=== PATIENT | female | born 1935 | race Two or more races ===

== ENCOUNTER 2017-11-25 12:33 | Emergency (ER) | payer OTHER ==
[~2017-11-25] VITALS: Ht 149.9 cm; Wt 72.6 kg
[~2017-11-25 12:33] MED LIST: HYZAAR 100-121 UDTAB; LANTUS SOLOSTAR3 ML; METFORMIN HYDRO25 GM; NOVOLOG MIX 70/33 M1; SYNTHROID50 MCG; VASOTEC2.5 MG
== END 2017-11-25 16:25 | disposition home or self-care (01) ==
LOC: ER 12:33 → CPU-OBS 12:47 → ER 16:25
DX: R00.1 Bradycardia, unspecified (principal); R07.89 Other chest pain

== ENCOUNTER 2020-03-21 17:55 | Emergency (ER) | payer OTHER ==
[~2020-03-21] VITALS: Ht 160 cm; Wt 68.0 kg
[2020-03-21] MEDS ORDERED: CARDURA XL4 MG PO (18:13)
== END 2020-03-22 13:08 | disposition home or self-care (01) ==
LOC: ER 17:55 → CPU-OBS 18:06 → ER 03-22 13:08
DX: I49.5 Sick sinus syndrome (principal); R42 Dizziness and giddiness; I10 Essential (primary) hypertension; E11.9 Type 2 diabetes mellitus without complications

== ENCOUNTER 2022-01-20 06:47 | Outpatient (CLI) | payer OTHER ==
[~2022-01-20 06:47] MED LIST changes: +CARDURA XL4 MG PO
== END 2022-01-20 14:47 | disposition home or self-care (01) ==
LOC: LAB 06:47
PROVIDERS: ATTEND Internal Medicine Cardiovascular Disease
DX: J81.0 Acute pulmonary edema (principal); E78.00 Pure hypercholesterolemia, unspecified; N18.30 Chronic kidney disease, stage 3 unspecified; R07.9 Chest pain, unspecified; I24.9 Acute ischemic heart disease, unspecified; E11.9 Type 2 diabetes mellitus without complications; E03.8 Other specified hypothyroidism; I12.9 Hypertensive chronic kidney disease with stage 1 through stage 4 chronic kidney disease, or unspecified chronic kidney disease

== ENCOUNTER 2023-07-19 10:30 | Outpatient (CLI) | payer OTHER | END 2023-07-19 10:39 | disposition home or self-care (01) | LOC: NUCLEAR 10:30 | PROVIDERS: ATTEND Internal Medicine Cardiovascular Disease | DX: I11.9 Hypertensive heart disease without heart failure (principal) ==

== ENCOUNTER 2024-01-08 15:05 | Inpatient (IN) | payer OTHER ==
[~2024-01-08] VITALS: Ht 152.4 cm; Wt 63.5 kg
[2024-01-08 16:32] LABS: HEMATOCRIT 26.5 % (36.0-45.00); MEAN CELL VOLUME 85.6 fL (80.00-100.00); MEAN CORPUSCULAR HGB CONC 34.4 g/dl (32.0-36.0); PLATELET COUNT 202 K/uL (150-450); RED CELL DISTRIBUTION WIDTH 13.8 % (11.5-14.5)
[2024-01-08 16:33] LABS: HEMOGLOBIN 9.1 g/dL (12.0-15.00); MEAN CORPUSCULAR HEMOGLOBIN 29.3 pg (27.00-32.0)
[2024-01-08 16:59] LABS: INR 1.04; PARTIAL THROMBOPLASTIN TIME 29.5 SECONDS (22.0-34.0); PROTHROMBIN TIME 10.9 SECONDS (9.0-11.5)
[2024-01-08 17:05] LABS: ALBUMIN 3.6 gm/dL (3.4-5.0); BILIRUBIN TOTAL 0.26 mg/dL (0.3-1.2); CALCIUM 8.6 mg/dL (8.5-10.1); CREATININE SERUM 3.6 mg/dL (0.55-1.02); GFR 11.96; POTASSIUM 4.12 mEq/L (3.5-5.1); TOTAL PROTEIN 7.6 gm/dL (6.4-8.2)
[2024-01-08] MEDS ORDERED: NITROGLYCERIN IN 5 % DEXTROSE 50 MG/250 ML BOTTLE IV ONE (17:34)
[2024-01-08 17:38] LABS: URINE APPEARANCE Clear; URINE BILIRRUBIN Negative (NEGATIVE); URINE BLOOD Negative; URINE COLOR Yellow; URINE KETONE Negative (NEGATIVE); URINE LEUKOCYTE Small; URINE NITRATE Negative; URINE PROTEIN 30 (NEGATIVE); URINE UROBILINOGEN 0.2 E.U./dl
[2024-01-08] MEDS ORDERED: ENOXAPARIN SODIUM 30 MG/0.3 ML SYRINGE SUBCUTANEO SCH (17:38)
[2024-01-08] MEDS ORDERED: FAMOTIDINE/PF 20 MG/2 ML VIAL IV SCH (17:39)
[2024-01-08 17:41] LABS: URINE EPITHELIAL CELLS 6.7 uL (0.0-38.8); URINE WBC 171.9 uL (0.0-23.2)
[2024-01-08] MEDS ORDERED: CLOPIDOGREL BISULFATE 75 MG TABLET PO SCH (17:43)
[2024-01-08] MEDS ORDERED: SODIUM CHLORIDE 0.45 % 1,000 ML IV SCH ×2 (17:45→18:30)
[2024-01-08] MEDS ORDERED: NITROGLYCERIN IN 5 % DEXTROSE 50 MG/250 ML BOTTLE IV SCH (17:45)
[2024-01-08 17:48] LABS: URINE CAST 1.06 uL (0.0-1.40); URINE GLUCOSE >=1000 MG/DL (NEGATIVE); URINE RBC 0.1 uL (0.0-20.8)
[2024-01-08 17:56] LABS: ABG PH 7.375 (7.35-7.45); ABG PO2 115.2 mmHg (80-100); ABG pCO2 33.1 mmHg (35-45); BASE EXCESS -5.2 mmol/l; SaO2 98.3 %
[2024-01-08] MEDS ORDERED: ALBUTEROL SULFATE 3 ML/2.5 MG AMPUL.NEB IH SCH (18:03)
[2024-01-08] MEDS ORDERED: METOPROLOL SUCCINATE 25 MG TAB.SR.24H PO SCH (18:05)
[2024-01-08 18:07] LABS: allen test SATISFACTORY; o2 32 %; puncture site RADIAL RIGHT
[2024-01-08] MEDS ORDERED: MAGNESIUM SULFATE 50% 1,000 MG/2 ML VIAL ONE (18:11)
[2024-01-08] MEDS ORDERED: DEXTROSE 50 % IN WATER 0.5 G/ML DISP.SYRIN IV PRN (18:15)
[2024-01-08] MEDS ORDERED: INSULIN LISPRO 1,000 UNIT/10 ML UNITS SUBCUTANEO PRN (18:15)
[2024-01-08] MEDS ORDERED: FUROsemide 40 MG/4 ML VIAL IV STA (18:19)
[2024-01-08] MEDS ORDERED: CLOPIDOGREL BISULFATE 75 MG TABLET PO ONE (20:19)
[2024-01-08] MEDS ORDERED: FUROsemide 40 MG/4 ML VIAL ONE (20:19)
[2024-01-08] MEDS ORDERED: ENOXAPARIN SODIUM 40 MG/0.4 ML SYRINGE SUBCUTANEO ONE (20:20)
[2024-01-08] MEDS ORDERED: FAMOtidine 200mg/20ml VIAL ONE (20:22)
[2024-01-08] MEDS ORDERED: FUROsemide 20 MG/2 ML VIAL ONE (20:48)
[2024-01-08 23:00] VITALS: BP 159/57; O2SAT 100
[2024-01-08 23:22] LABS: AMYLASE 104 U/L (25-115); LIPASE 100 U/L (13-75)
[2024-01-08] MEDS ORDERED: LORazepam 0.5 MG TABLET PO SCH (23:45)
[2024-01-09] VITALS (16 sets, daily range): BP systolic 136–157; BP diastolic 45–70; O2SAT 96–100
[2024-01-09] MEDS ORDERED: ALBUTEROL SULFATE 3 ML/2.5 MG AMPUL.NEB IH ONE ×2 (00:20→08:40)
[2024-01-09] MEDS ORDERED: ALBUTEROL SULFATE 3 ML/2.5 MG AMPUL.NEB IH SCH (01:00)
[2024-01-09] MEDS ORDERED: LEVOTHYROXINE SODIUM 100 MCG TABLET PO SCH (06:00)
[2024-01-09 07:45] LABS: CHOLESTEROL 139 mg/dL (0-200); HDL 47 mg/dl (40-60); LDL 54 mg/dl (0-130); TRIGLYCERIDES 188 mg/dL (0-150); VLDL 37 (0-39)
[2024-01-09 07:52] LABS: C-REACTIVE PROTEIN < 0.29 MG/DL (0.00-0.29)
[2024-01-09] MEDS ORDERED: LOSARTAN POTASSIUM 50 MG TABLET PO SCH (09:00)
[2024-01-09] MEDS ORDERED: ENOXAPARIN SODIUM 40 MG/0.4 ML SYRINGE SUBCUTANEO ONE (09:41)
[2024-01-09] MEDS ORDERED: FAMOtidine 200mg/20ml VIAL ONE (09:41)
[2024-01-09] MEDS ORDERED: INSULIN LISPRO 1,000 UNIT/10 ML UNITS SUBCUTANEO ONE ×2 (12:45→16:44)
[2024-01-09] MEDS ORDERED: GUAIFEN/DEXTROMETHORPHAN/PE 10 ML BLIST.PACK PO ONE (16:35)
[2024-01-09] MEDS ORDERED: NITROGLYCERIN IN 5 % DEXTROSE 50 MG/250 ML BOTTLE IV ONE (16:38)
[2024-01-09] MEDS ORDERED: FUROsemide 40 MG/4 ML VIAL IV SCH (18:28)
[2024-01-09] MEDS ORDERED: EPOETIN ALFA-EPBX 10,000 UNIT/ML VIAL (Retacrit) SUBCUTANEO STA (18:33)
[2024-01-09] MEDS ORDERED: NIFEDIPINE 60 MG TAB.SA.OSM PO SCH (18:57)
[2024-01-09] MEDS ORDERED: GUAIFENESIN 200 MG/10 ML BLIST.PACK PO ONE (21:34)
[2024-01-09] MEDS ORDERED: NITROGLYCERIN IN 5 % DEXTROSE 250 ML IV SCH (22:00)
[2024-01-10] VITALS (15 sets, daily range): BP systolic 110–152; BP diastolic 45–88; O2SAT 95–100
[2024-01-10] MEDS ORDERED: ALBUTEROL SULFATE 3 ML/2.5 MG AMPUL.NEB IH ONE (00:24)
[2024-01-10] MEDS ORDERED: MORPHINE SULFATE 4 MG/ML CARTRIDGE IV ONE (02:45)
[2024-01-10 06:58] LABS: HEMATOCRIT 24.6 % (36.0-45.00); MEAN CORPUSCULAR HGB CONC 34.6 g/dl (32.0-36.0); PLATELET COUNT 189 K/uL (150-450); RED BLOOD COUNT 2.93 M/uL (4.00-6.00)
[2024-01-10 07:07] LABS: HEMOGLOBIN 8.5 g/dL (12.0-15.00)
[2024-01-10 07:33] LABS: ALBUMIN 3.1 gm/dL (3.4-5.0); BILIRUBIN TOTAL 0.42 mg/dL (0.3-1.2); CALCIUM 8.9 mg/dL (8.5-10.1); CREATININE SERUM 3.13 mg/dL (0.55-1.02); GFR 14.06; GLOBULINA 3.8 G/DL (2.4-3.5); PHOSPHOROUS 3.8 mg/dL (2.5-4.9); POTASSIUM 4.92 mEq/L (3.5-5.1); TOTAL PROTEIN 6.9 gm/dL (6.4-8.2)
[2024-01-10] MEDS ORDERED: INSULIN LISPRO 1,000 UNIT/10 ML UNITS SUBCUTANEO SCH (08:00)
[2024-01-10 08:05] LABS: URIC ACID 8.8 mg/dL (2.5-7.5)
[2024-01-10] MEDS ORDERED: INSULIN LISPRO 1,000 UNIT/10 ML UNITS SUBCUTANEO ONE ×4 (08:31→16:43)
[2024-01-10 08:39] LABS: CREATININE URINE RANDOM 33.7 MG/DL (30-125)
[2024-01-10] MEDS ORDERED: INSULIN GLARGINE,HUM.REC.ANLOG 1,000 UNITS/10 ML UNITS SUBCUTANEO ONE (08:58)
[2024-01-10] MEDS ORDERED: NIFEDIPINE 90 MG TAB.SA.OSM PO SCH (09:00)
[2024-01-10] MEDS ORDERED: INSULIN GLARGINE,HUM.REC.ANLOG 1,000 UNITS/10 ML UNITS SUBCUTANEO SCH (09:00)
[2024-01-10 09:58] LABS: URINE PROT QUANT 24HR 26.1 MG/DL
[2024-01-10 10:09] LABS: URINE PROT QUANT 24 HR 776.48 MG/24HR (42-225)
[2024-01-10 10:13] LABS: CREATINE CLEARANCE 18.9 ML/MIN (97-137); CREATININE SERUM 3.13 mg/dL (0.6-1.0)
[2024-01-10 11:15] LABS: ABG PH 7.373 (7.35-7.45); ABG pCO2 33.6 mmHg (35-45)
[2024-01-10 11:16] LABS: ABG PO2 84.2 mmHg (80-100); BASE EXCESS -5.1 mmol/l; BICARBONATE 19.2 mmol/l (23-25); SaO2 95.8 %; Tco2 20.2 mmol/l; allen test SATISFACTORY; o2 28 %; puncture site RADIAL RIGHT
[2024-01-10] MEDS ORDERED: GUAIFENESIN 200 MG/10 ML BLIST.PACK PO SCH (18:56)
[2024-01-10] MEDS ORDERED: RANOLAZINE 500 MG PO SCH (22:46)
[2024-01-11] VITALS (19 sets, daily range): BP systolic 112–160; BP diastolic 45–92; O2SAT 96–100
[2024-01-11] MEDS ORDERED: ALBUTEROL SULFATE 3 ML/2.5 MG AMPUL.NEB IH ONE (01:02)
[2024-01-11] MEDS ORDERED: DIPHENHYDRAMINE HCL 50 MG/ML VIAL 1ML IV ONE (05:15)
[2024-01-11] MEDS ORDERED: METHYLPREDNISOLONE SOD SUCC 40 MG VIAL IV ONE (05:15)
[2024-01-11] MEDS ORDERED: INSULIN GLARGINE,HUM.REC.ANLOG 1,000 UNITS/10 ML UNITS SUBCUTANEO SCH ×2 (09:00→21:00)
[2024-01-11 18:46] LABS: HEMATOCRIT 31.3 % (36.0-45.00); HEMOGLOBIN 10.6 g/dL (12.0-15.00); MEAN CELL VOLUME 84.1 fL (80.00-100.00); MEAN CORPUSCULAR HEMOGLOBIN 28.4 pg (27.00-32.0); MEAN CORPUSCULAR HGB CONC 33.8 g/dl (32.0-36.0); PLATELET COUNT 191 K/uL (150-450); RED BLOOD COUNT 3.72 M/uL (4.00-6.00); RED CELL DISTRIBUTION WIDTH 14.7 % (11.5-14.5)
[2024-01-11] MEDS ORDERED: FUERA DE FORMULARIO 1 U FF PO SCH (21:00)
[2024-01-12 04:39] VITALS: BP 154/49; O2SAT 99
[2024-01-12 06:22] LABS: HEMATOCRIT 27.9 % (36.0-45.00); HEMOGLOBIN 9.7 g/dL (12.0-15.00); MEAN CELL VOLUME 84.4 fL (80.00-100.00); MEAN CORPUSCULAR HEMOGLOBIN 29.5 pg (27.00-32.0); PLATELET COUNT 190 K/uL (150-450); RED CELL DISTRIBUTION WIDTH 14.2 % (11.5-14.5)
[2024-01-12 06:49] LABS: BILIRUBIN TOTAL 0.28 mg/dL (0.3-1.2); CALCIUM 8.6 mg/dL (8.5-10.1); CREATININE SERUM 3.48 mg/dL (0.55-1.02); GFR 12.44; GLOBULINA 3.4 G/DL (2.4-3.5); POTASSIUM 4.63 mEq/L (3.5-5.1); TOTAL PROTEIN 6.4 gm/dL (6.4-8.2)
[2024-01-12 07:04] VITALS: BP 150/51; O2SAT 100
[2024-01-12 16:16] VITALS: BP 152/63; O2SAT 96
[2024-01-12 20:35] VITALS: BP 150/54; O2SAT 96
[2024-01-12] MEDS ORDERED: INSULIN GLARGINE,HUM.REC.ANLOG 1,000 UNITS/10 ML UNITS SUBCUTANEO SCH (21:00)
[2024-01-12] MEDS ORDERED: INSULIN GLARGINE,HUM.REC.ANLOG 1,000 UNITS/10 ML UNITS SUBCUTANEO ONE (21:44)
[2024-01-12 23:08] VITALS: BP 133/43
[2024-01-13 04:00] VITALS: BP 161/49; O2SAT 96
[2024-01-13 07:40] VITALS: BP 154/60; O2SAT 95
[2024-01-13] MEDS ORDERED: INSULIN GLARGINE,HUM.REC.ANLOG 1,000 UNITS/10 ML UNITS SUBCUTANEO SCH (09:00)
[2024-01-13] MEDS ORDERED: RANOLAZINE 500 MG TAB.ER.12H PO SCH (09:00)
[2024-01-13] MEDS ORDERED: FAMOtidine 20 MG TABLET PO SCH (09:00)
[2024-01-13 15:15] VITALS: BP 151/55; O2SAT 92
[2024-01-13 15:24] LABS: HEMATOCRIT 33.2 % (36.0-45.00); HEMOGLOBIN 11.4 g/dL (12.0-15.00); MEAN CELL VOLUME 85.5 fL (80.00-100.00); MEAN CORPUSCULAR HEMOGLOBIN 29.4 pg (27.00-32.0); MEAN CORPUSCULAR HGB CONC 34.3 g/dl (32.0-36.0); PLATELET COUNT 202 K/uL (150-450); RED BLOOD COUNT 3.88 M/uL (4.00-6.00); RED CELL DISTRIBUTION WIDTH 14.5 % (11.5-14.5)
[2024-01-13 21:21] VITALS: O2SAT 92
[2024-01-13 22:37] VITALS: BP 190/71; O2SAT 96
[2024-01-14] VITALS (9 sets, daily range): BP systolic 140–172; BP diastolic 61–70; O2SAT 90–100
[2024-01-14 06:44] LABS: CALCIUM 8.5 mg/dL (8.5-10.1); CREATININE SERUM 3.72 mg/dL (0.55-1.02); GFR 11.52; POTASSIUM 5.2 mEq/L (3.5-5.1)
[2024-01-14] MEDS ORDERED: 0.9 % SODIUM CHLORIDE 1,000 ML IV SCH (09:54)
[2024-01-14] MEDS ORDERED: INSULIN GLARGINE,HUM.REC.ANLOG 1,000 UNITS/10 ML UNITS SUBCUTANEO STA (11:01)
[2024-01-14] MEDS ORDERED: hydrALAZINE HCL 25 MG TABLET PO SCH (13:00)
[2024-01-14] MEDS ORDERED: GUAIFENESIN 200 MG/10 ML BLIST.PACK PO STA (17:59)
[2024-01-14 19:29] LABS: ABG PH 7.405 (7.35-7.45); ABG PO2 56.9 mmHg (80-100); ABG pCO2 29.9 mmHg (35-45)
[2024-01-14 19:30] LABS: BICARBONATE 18.4 mmol/l (23-25); SaO2 88.6 %; Tco2 19.3 mmol/l; allen test SATISFACTORY; puncture site RADIAL RIGHT
[2024-01-14 19:33] LABS: o2 28 %
[2024-01-14] MEDS ORDERED: FUROsemide 40 MG/4 ML VIAL IV STA (19:53)
[2024-01-14 23:31] LABS: alpha 1 g 0.2 g/dL (0.0-0.4); alpha 2 0.9 g/dL (0.4-1.0); beta g 0.8 g/dL (0.7-1.3); gamma g 1.3 g/dL (0.4-1.8); globulin t 3.2 g/dL (2.2-3.9); m spike Not Observed g/dL (Not Observed); prot total 6.4 g/dL (6.0-8.5)
[2024-01-15] VITALS (10 sets, daily range): BP systolic 139–173; BP diastolic 42–74; O2SAT 91–100
[2024-01-15] MEDS ORDERED: ALBUTEROL SULFATE 3 ML/2.5 MG AMPUL.NEB IH SCH
[2024-01-15 07:44] LABS: HEMOGLOBIN 11.3 g/dL (12.0-15.00); MEAN CELL VOLUME 84.5 fL (80.00-100.00); MEAN CORPUSCULAR HEMOGLOBIN 28.9 pg (27.00-32.0); MEAN CORPUSCULAR HGB CONC 34.2 g/dl (32.0-36.0); PLATELET COUNT 223 K/uL (150-450); RED BLOOD COUNT 3.91 M/uL (4.00-6.00); RED CELL DISTRIBUTION WIDTH 14.6 % (11.5-14.5)
[2024-01-15 08:05] LABS: CALCIUM 8.8 mg/dL (8.5-10.1); CREATININE SERUM 3.75 mg/dL (0.55-1.02); GFR 11.41; POTASSIUM 5.02 mEq/L (3.5-5.1)
[2024-01-15] MEDS ORDERED: INSULIN GLARGINE,HUM.REC.ANLOG 1,000 UNITS/10 ML UNITS SUBCUTANEO SCH (09:00)
[2024-01-15] MEDS ORDERED: hydrALAZINE HCL 50 MG TABLET PO SCH (09:00)
[2024-01-15 20:21] LABS: ABG PH 7.388 (7.35-7.45); ABG pCO2 30.9 mmHg (35-45); BASE EXCESS -5.5 mmol/l; BICARBONATE 18.2 mmol/l (23-25); Tco2 19.1 mmol/l
[2024-01-15 20:22] LABS: ABG PO2 82.4 mmHg (80-100); SaO2 95.9 %; allen test SATISFACTORY; o2 100 %; puncture site RADIAL RIGHT
[2024-01-15] MEDS ORDERED: INSULIN LISPRO 1,000 UNIT/10 ML UNITS SUBCUTANEO PRN (21:30)
[2024-01-16] MEDS ORDERED: ISOSORBIDE DINITRATE 5 MG TABLET PO SCH (01:00)
[2024-01-16 04:00] VITALS: BP 147/61; O2SAT 93
[2024-01-16 07:18] VITALS: BP 172/50; O2SAT 98
[2024-01-16] MEDS ORDERED: CLOTRIMAZOLE 15 GM TUBE TOP SCH (09:00)
[2024-01-16] MEDS ORDERED: hydrALAZINE HCL 50 MG,hydrALAZINE HCL 25 MG PO SCH (09:00)
[2024-01-16] MEDS ORDERED: EPOETIN ALFA-EPBX 10,000 UNIT/ML VIAL (Retacrit) SUBCUTANEO SCH (09:00)
[2024-01-16] MEDS ORDERED: ISOSORBIDE DINITRATE 10 MG TABLET PO SCH (09:00)
[2024-01-16] MEDS ORDERED: CHLORHEXIDINE GLUCONATE 120 ML BOTTLE TOP ONE (09:11)
[2024-01-16 12:29] VITALS: BP 138/50; O2SAT 99
[2024-01-16] MEDS ORDERED: BISACODYL 5 MG TABLET.EC PO PRN (14:15)
[2024-01-16 15:15] VITALS: BP 154/69; O2SAT 99
[2024-01-16] MEDS ORDERED: CIPROFLOXACIN IN 5 % DEXTROSE 200 MG/100 ML PIGGYBAG IV NR (16:45)
[2024-01-16] MEDS ORDERED: LACTOBACILLUS ACIDOPHILUS 1 CAP CAP PO SCH (17:00)
[2024-01-16] MEDS ORDERED: POLYETHYLENE GLYCOL 3350 17 GM BLIST.PACK PO SCH (17:00)
[2024-01-16 20:00] VITALS: BP 173/44; O2SAT 99
[2024-01-16] MEDS ORDERED: FUROsemide 20 MG/2 ML VIAL ONE (20:35)
[2024-01-16] MEDS ORDERED: FUROsemide 40 MG/4 ML VIAL ONE (20:35)
[2024-01-16] MEDS ORDERED: FUROsemide 20 MG/2 ML VIAL IV STA (20:39)
[2024-01-16] MEDS ORDERED: SODIUM BICARBONATE 50MEQ/50ML VIAL IV ONE (20:57)
[2024-01-16] MEDS ORDERED: SODIUM BICARBONATE 1 MEQ/ML DISP.SYRIN 50ML IV ONE (21:00)
[2024-01-16 22:06] LABS: ABG PH 7.371 (7.35-7.45); ABG PO2 160.8 mmHg (80-100); ABG pCO2 28.2 mmHg (35-45); BASE EXCESS -7.6 mmol/l; SaO2 99.3 %; Tco2 16.9 mmol/l
[2024-01-16 22:07] LABS: allen test SATISFACTORY; o2 100 %; puncture site RADIAL RIGHT
[2024-01-16 23:20] VITALS: BP 174/63; O2SAT 98
[2024-01-17 04:10] VITALS: BP 139/52; O2SAT 98
[2024-01-17 07:24] LABS: ALBUMIN 2.7 gm/dL (3.4-5.0); BILIRUBIN TOTAL 0.57 mg/dL (0.3-1.2); CALCIUM 8.5 mg/dL (8.5-10.1); GLOBULINA 3.8 G/DL (2.4-3.5); TOTAL PROTEIN 6.5 gm/dL (6.4-8.2)
[2024-01-17 07:25] LABS: CREATININE SERUM 3.97 mg/dL (0.55-1.02); GFR 10.68; POTASSIUM 5.99 mEq/L (3.5-5.1)
[2024-01-17 07:41] VITALS: BP 159/60; O2SAT 96
[2024-01-17] MEDS ORDERED: INSULIN NPH HUMAN ISOPHANE 1,000 UNITS/10 ML UNITS SUBCUTANEO SCH (08:00)
[2024-01-17] MEDS ORDERED: SODIUM POLYSTYRENE SULFONATE 15 G/4 TSP TSP PO NR (10:30)
[2024-01-17 12:00] VITALS: BP 139/48; O2SAT 95
[2024-01-17 15:15] VITALS: BP 139/48; O2SAT 98
[2024-01-17 20:00] VITALS: BP 147/54; O2SAT 100
[2024-01-17 23:17] VITALS: BP 158/78; O2SAT 98
[2024-01-18 04:00] VITALS: BP 158/51; O2SAT 98
[2024-01-18 07:11] VITALS: BP 179/69; O2SAT 99
[2024-01-18] MEDS ORDERED: 0.9 % SODIUM CHLORIDE 1,000 ML IV SCH (08:15)
[2024-01-18 15:10] VITALS: BP 152/55; O2SAT 97
[2024-01-18 16:33] LABS: ABG PH 7.413 (7.35-7.45); ABG pCO2 33.8 mmHg (35-45); BASE EXCESS -2.7 mmol/l; BICARBONATE 21.1 mmol/l (23-25); SaO2 96.2 %; Tco2 22.1 mmol/l
[2024-01-18] MEDS ORDERED: levoFLOXacin IN DEXTROSE 5 % 500MG/100ML PIGGYBAG IV NR (16:43)
[2024-01-18 16:44] LABS: allen test SATISFACTORY; o2 100 %; puncture site RADIAL LEFT
[2024-01-18] MEDS ORDERED: FUROsemide 20 MG/2 ML VIAL IV SCH (17:00)
[2024-01-18] MEDS ORDERED: DOXAZOSIN MESYLATE 2 MG TABLET PO SCH (17:00)
[2024-01-18 17:18] LABS: CALCIUM 8.9 mg/dL (8.5-10.1); CREATININE SERUM 3.5 mg/dL (0.55-1.02); GFR 12.36; POTASSIUM 4.6 mEq/L (3.5-5.1)
[2024-01-18] MEDS ORDERED: LIDOCAINE HCL 1% 10ML VIAL PERCUT ONE (18:45)
[2024-01-18] MEDS ORDERED: HEPARIN SODIUM,PORCINE 500 UNITS/5 ML VIAL IV ONE (18:45)
[2024-01-18] MEDS ORDERED: AMIODARONE HCL 200 MG TABLET PO NR (19:30)
[2024-01-18 20:00] VITALS: BP 123/72; O2SAT 97
[2024-01-18 22:56] VITALS: BP 139/89; O2SAT 98
[2024-01-19] VITALS (9 sets, daily range): BP systolic 127–155; BP diastolic 61–82; O2SAT 93–100
[2024-01-19 07:49] LABS: ALBUMIN 2.7 gm/dL (3.4-5.0); BILIRUBIN TOTAL 0.47 mg/dL (0.3-1.2); CALCIUM 8.7 mg/dL (8.5-10.1); CREATININE SERUM 3.37 mg/dL (0.55-1.02); GFR 12.91; GLOBULINA 3.7 G/DL (2.4-3.5); POTASSIUM 5.28 mEq/L (3.5-5.1); TOTAL PROTEIN 6.4 gm/dL (6.4-8.2)
[2024-01-19] MEDS ORDERED: AMIODARONE HCL 200 MG TABLET PO SCH (09:00)
[2024-01-19] MEDS ORDERED: AMIODARONE HCL 50 MG/ML AMPUL IV NR (10:00)
[2024-01-19] MEDS ORDERED: CEFEPIME HCL 1,000 MG in DEXTROSE 5 % IN WATER 50 ML IV SCH (12:00)
[2024-01-19 12:14] LABS: URINE APPEARANCE Clear; URINE BILIRRUBIN Negative (NEGATIVE); URINE COLOR Yellow; URINE KETONE Trace (NEGATIVE); URINE LEUKOCYTE Trace; URINE NITRATE Negative; URINE PROTEIN 30 (NEGATIVE); URINE UROBILINOGEN 0.2 E.U./dl
[2024-01-19 12:18] LABS: URINE BACTERIA 391.7 uL (0.0-1933); URINE EPITHELIAL CELLS 3.2 uL (0.0-38.8); URINE RBC 51.1 uL (0.0-20.8); URINE WBC 30.7 uL (0.0-23.2)
[2024-01-19 12:32] LABS: URINE BLOOD TRACES; URINE GLUCOSE 500 MG/DL (NEGATIVE)
[2024-01-19 12:42] LABS: HEMATOCRIT 32.4 % (36.0-45.00); MEAN CELL VOLUME 85.4 fL (80.00-100.00); MEAN CORPUSCULAR HEMOGLOBIN 28.9 pg (27.00-32.0); MEAN CORPUSCULAR HGB CONC 33.8 g/dl (32.0-36.0); PLATELET COUNT 291 K/uL (150-450); RED BLOOD COUNT 3.79 M/uL (4.00-6.00); RED CELL DISTRIBUTION WIDTH 14.8 % (11.5-14.5)
[2024-01-19] MEDS ORDERED: HEPARIN SODIUM,PORCINE 5,000 UNITS/ML VIAL IV NR (17:30)
[2024-01-20 04:00] VITALS: BP 141/91; O2SAT 100
[2024-01-20 06:07] LABS: HEMATOCRIT 34.3 % (36.0-45.00); HEMOGLOBIN 11.5 g/dL (12.0-15.00); MEAN CELL VOLUME 85.6 fL (80.00-100.00); MEAN CORPUSCULAR HEMOGLOBIN 28.7 pg (27.00-32.0); MEAN CORPUSCULAR HGB CONC 33.5 g/dl (32.0-36.0); PLATELET COUNT 323 K/uL (150-450); RED BLOOD COUNT 4.01 M/uL (4.00-6.00); RED CELL DISTRIBUTION WIDTH 14.4 % (11.5-14.5)
[2024-01-20 06:54] LABS: ALBUMIN 2.7 gm/dL (3.4-5.0); BILIRUBIN TOTAL 0.43 mg/dL (0.3-1.2); CALCIUM 8.5 mg/dL (8.5-10.1); CREATININE SERUM 2.73 mg/dL (0.55-1.02); GFR 16.46; GLOBULINA 3.9 G/DL (2.4-3.5); POTASSIUM 4.44 mEq/L (3.5-5.1); TOTAL PROTEIN 6.6 gm/dL (6.4-8.2)
[2024-01-20 07:22] VITALS: BP 115/67; O2SAT 98
[2024-01-20] MEDS ORDERED: INSULIN NPH HUMAN ISOPHANE 1,000 UNITS/10 ML UNITS SUBCUTANEO SCH (08:00)
[2024-01-20] MEDS ORDERED: INSULIN LISPRO 1,000 UNIT/10 ML UNITS SUBCUTANEO SCH ×2 (08:00→12:00)
[2024-01-20 12:53] VITALS: BP 138/66; O2SAT 100
[2024-01-20 15:04] VITALS: BP 138/66; O2SAT 98
[2024-01-20 20:00] VITALS: BP 135/48; O2SAT 94
[2024-01-20 23:30] VITALS: BP 151/62; O2SAT 96
[2024-01-21 04:00] VITALS: BP 159/55; O2SAT 95
[2024-01-21 07:35] VITALS: BP 159/40; O2SAT 100
[2024-01-21] MEDS ORDERED: INSULIN NPH HUM/REG INSULIN HM 1,000 UNIT/10 ML UNITS SUBCUTANEO SCH (08:00)
[2024-01-21 11:52] LABS: ABG PH 7.478 (7.35-7.45); ABG PO2 98.6 mmHg (80-100); ABG pCO2 27.6 mmHg (35-45); SaO2 98.1 %; Tco2 20.9 mmol/l
[2024-01-21 12:00] VITALS: BP 154/61
[2024-01-21] MEDS ORDERED: CEFEPIME HCL 1,000 MG VIAL ONE (12:25)
[2024-01-21 13:35] LABS: allen test SATISFACTORY; o2 40 %; puncture site RADIAL RIGHT
[2024-01-21 15:31] VITALS: BP 146/55; O2SAT 100
[2024-01-21] MEDS ORDERED: HEPARIN SODIUM,PORCINE 5,000 UNITS/ML VIAL IV NR (19:00)
[2024-01-21 20:00] VITALS: BP 143/78; O2SAT 100
[2024-01-21 23:14] VITALS: BP 177/87; O2SAT 99
[2024-01-22] VITALS (7 sets, daily range): BP systolic 114–197; BP diastolic 48–99; O2SAT 98–100
[2024-01-22] MEDS ORDERED: LEVOTHYROXINE SODIUM 100 MCG TABLET PO SCH (06:00)
[2024-01-22] MEDS ORDERED: CEFEPIME HCL 1,000 MG VIAL ONE (11:49)
[2024-01-23] VITALS (7 sets, daily range): BP systolic 129–188; BP diastolic 46–77; O2SAT 96–100
[2024-01-23 07:44] LABS: HEMATOCRIT 32.7 % (36.0-45.00); HEMOGLOBIN 11.1 g/dL (12.0-15.00); MEAN CELL VOLUME 84.8 fL (80.00-100.00); MEAN CORPUSCULAR HEMOGLOBIN 28.8 pg (27.00-32.0); PLATELET COUNT 335 K/uL (150-450); RED BLOOD COUNT 3.86 M/uL (4.00-6.00); RED CELL DISTRIBUTION WIDTH 14.4 % (11.5-14.5)
[2024-01-23 08:14] LABS: ALBUMIN 2.5 gm/dL (3.4-5.0); CALCIUM 8.3 mg/dL (8.5-10.1); CREATININE SERUM 2.93 mg/dL (0.55-1.02); GFR 15.17; PHOSPHOROUS 3.8 mg/dL (2.5-4.9); POTASSIUM 4.71 mEq/L (3.5-5.1)
[2024-01-23] MEDS ORDERED: CEFEPIME HCL 1,000 MG VIAL ONE (11:28)
[2024-01-23] MEDS ORDERED: hydrALAZINE HCL 50 MG TABLET PO SCH (17:00)
[2024-01-24 04:00] VITALS: BP 164/53; O2SAT 97
[2024-01-24 07:56] VITALS: BP 181/57; O2SAT 94
[2024-01-24] MEDS ORDERED: ISOSORBIDE DINITRATE 10 MG TABLET PO SCH (09:00)
[2024-01-24] MEDS ORDERED: DOXAZOSIN MESYLATE 4 MG TABLET PO SCH (09:00)
[2024-01-24] MEDS ORDERED: INSULIN NPH HUM/REG INSULIN HM 1,000 UNIT/10 ML UNITS SUBCUTANEO SCH (09:01)
[2024-01-24 12:00] VITALS: BP 150/56; O2SAT 99
[2024-01-24 15:18] VITALS: BP 152/54; O2SAT 99
[2024-01-24] MEDS ORDERED: HEPARIN SODIUM,PORCINE 5,000 UNITS/ML VIAL SPEPROC ONE (17:45)
[2024-01-24] MEDS ORDERED: HEPARIN SODIUM,PORCINE 5,000 UNITS/ML VIAL SPEPROC NR (18:15)
[2024-01-24] MEDS ORDERED: TEMAZEPAM 15 MG CAPSULE PO PRN (20:00)
[2024-01-24 20:46] VITALS: BP 151/47; O2SAT 95
[2024-01-24 23:02] VITALS: BP 165/53; O2SAT 96
[2024-01-25 04:00] VITALS: BP 159/51; O2SAT 100
[2024-01-25 07:04] LABS: CALCIUM 8.5 mg/dL (8.5-10.1); CREATININE SERUM 2.69 mg/dL (0.55-1.02); GFR 16.74; POTASSIUM 4.6 mEq/L (3.5-5.1)
[2024-01-25 07:20] VITALS: BP 151/52; O2SAT 98
[2024-01-25] MEDS ORDERED: CEFEPIME HCL 1,000 MG VIAL ONE (11:17)
[2024-01-25 11:56] VITALS: BP 159/52; O2SAT 99
[2024-01-25 15:23] VITALS: BP 166/56; O2SAT 98
[2024-01-25] MEDS ORDERED: INSULIN LISPRO 1,000 UNIT/10 ML UNITS SUBCUTANEO SCH (17:00)
[2024-01-25 21:46] VITALS: BP 152/64; O2SAT 98
[2024-01-26] VITALS (9 sets, daily range): BP systolic 130–153; BP diastolic 53–87; O2SAT 90–98
[2024-01-26] MEDS ORDERED: HEPARIN SODIUM,PORCINE 5,000 UNITS/ML VIAL SPEPROC NR ×2 (17:30→17:45)
[2024-01-27 01:29] VITALS: O2SAT 99
[2024-01-27 02:53] VITALS: BP 168/77; O2SAT 99
[2024-01-27 06:47] LABS: INR 1.12; PROTHROMBIN TIME 11.7 SECONDS (9.0-11.5)
[2024-01-27 06:51] LABS: PARTIAL THROMBOPLASTIN TIME 38.3 SECONDS (22.0-34.0)
[2024-01-27 06:52] LABS: ALBUMIN 2.4 gm/dL (3.4-5.0); BILIRUBIN TOTAL 0.22 mg/dL (0.3-1.2); CALCIUM 8.3 mg/dL (8.5-10.1); CREATININE SERUM 2.77 mg/dL (0.55-1.02); GFR 16.18; GLOBULINA 3.4 G/DL (2.4-3.5); POTASSIUM 4.21 mEq/L (3.5-5.1); TOTAL PROTEIN 5.8 gm/dL (6.4-8.2)
[2024-01-27] MEDS ORDERED: INSULIN NPH HUM/REG INSULIN HM 1,000 UNIT/10 ML UNITS SUBCUTANEO SCH (08:15)
[2024-01-27 08:36] VITALS: BP 164/62
[2024-01-27 10:20] VITALS: O2SAT 99
[2024-01-27] MEDS ORDERED: DEXTROSE 10 % IN WATER 500 ML IV ONE (15:45)
[2024-01-27 16:00] VITALS: BP 180/60; O2SAT 96
[2024-01-27 16:31] VITALS: O2SAT 96
[2024-01-27] MEDS ORDERED: INSULIN LISPRO 1,000 UNIT/10 ML UNITS SUBCUTANEO SCH (17:00)
[2024-01-27] MEDS ORDERED: HEPARIN SODIUM,PORCINE 500 UNITS/5 ML VIAL IV ONE (20:54)
[2024-01-27] MEDS ORDERED: LIDOCAINE HCL 1% 20ML VIAL IJ ONE (20:55)
[2024-01-27] MEDS ORDERED: LIDOCAINE HCL 1%/EPINEPHRINE 20ML VIAL IJ ONE (20:55)
[2024-01-27] MEDS ORDERED: BUPIVACAINE HCL/Mpf 0.5% 10ML VIAL ONE (20:55)
[2024-01-27] MEDS ORDERED: ENALAPRILAT DIHYDRATE 1.25 MG/ML VIAL IV ONE (22:47)
[2024-01-28] VITALS (10 sets, daily range): BP systolic 174–197; BP diastolic 64–73; O2SAT 93–100
[2024-01-28] MEDS ORDERED: HEPARIN SODIUM,PORCINE 5,000 UNITS/ML VIAL SPEPROC NR (18:30)
[2024-01-29] VITALS (9 sets, daily range): BP systolic 119–177; BP diastolic 54–63; O2SAT 90–98
[2024-01-29] MEDS ORDERED: ISOSORBIDE DINITRATE 20 MG TABLET PO SCH (17:00)
[2024-01-29 22:08] LABS: ALBUMIN 2.7 gm/dL (3.4-5.0); BILIRUBIN TOTAL 0.26 mg/dL (0.3-1.2); CALCIUM 8.6 mg/dL (8.5-10.1); GFR 9.51; GLOBULINA 3.4 G/DL (2.4-3.5); POTASSIUM 4.17 mEq/L (3.5-5.1); TOTAL PROTEIN 6.1 gm/dL (6.4-8.2)
[2024-01-29 22:30] LABS: CREATININE SERUM 4.39 mg/dL (0.55-1.02)
[2024-01-30] VITALS (10 sets, daily range): BP systolic 119–141; BP diastolic 47–61; O2SAT 94–99
[2024-01-31] VITALS (8 sets, daily range): BP systolic 142–166; BP diastolic 57–60; O2SAT 90–99
[2024-01-31] MEDS ORDERED: INSULIN NPH HUM/REG INSULIN HM 1,000 UNIT/10 ML UNITS SUBCUTANEO SCH (08:00)
[2024-01-31] MEDS ORDERED: TUBERCULIN,PURIF.PROT.DERIV. 10 SKIN.TEST SKIN.TEST ID NR (09:00)
[2024-01-31] MEDS ORDERED: HEPARIN SODIUM,PORCINE 5,000 UNITS/ML VIAL IV STA (17:54)
[2024-02-01] VITALS (10 sets, daily range): BP systolic 136–163; BP diastolic 46–70; O2SAT 95–99
[2024-02-01] MEDS ORDERED: BUPIVACAINE HCL 30 ML VIAL IJ NR (10:45)
[2024-02-01] MEDS ORDERED: HEPARIN SODIUM,PORCINE 500 UNITS/5 ML VIAL IV ONE (21:20)
[2024-02-02] VITALS (8 sets, daily range): BP systolic 151–170; BP diastolic 51–75; O2SAT 90–96
[2024-02-02 06:47] LABS: ALBUMIN 2.6 gm/dL (3.4-5.0); BILIRUBIN TOTAL 0.39 mg/dL (0.3-1.2); CALCIUM 8.3 mg/dL (8.5-10.1); CREATININE SERUM 3.29 mg/dL (0.55-1.02); GFR 13.27; GLOBULINA 3.3 G/DL (2.4-3.5); POTASSIUM 4.99 mEq/L (3.5-5.1); TOTAL PROTEIN 5.9 gm/dL (6.4-8.2)
[2024-02-02 07:02] LABS: HEMATOCRIT 29.6 % (36.0-45.00); MEAN CELL VOLUME 86.4 fL (80.00-100.00); MEAN CORPUSCULAR HEMOGLOBIN 29.2 pg (27.00-32.0); MEAN CORPUSCULAR HGB CONC 33.8 g/dl (32.0-36.0); PLATELET COUNT 294 K/uL (150-450); RED BLOOD COUNT 3.43 M/uL (4.00-6.00); RED CELL DISTRIBUTION WIDTH 14.9 % (11.5-14.5)
[2024-02-02] MEDS ORDERED: SPIRONOLACTONE 25 MG TABLET PO SCH (12:00)
[2024-02-02] MEDS ORDERED: HEPARIN SODIUM,PORCINE 5,000 UNITS/ML VIAL ONE (17:41)
[2024-02-02] MEDS ORDERED: HEPARIN SODIUM,PORCINE 5,000 UNITS/ML VIAL IV NR (18:00)
[2024-02-03] VITALS (7 sets, daily range): BP systolic 101–190; BP diastolic 58–67; O2SAT 93–100
[2024-02-03] MEDS ORDERED: TEMAZEPAM 15 MG CAPSULE PO PRN (22:15)
[2024-02-04] VITALS (7 sets, daily range): BP systolic 160–180; BP diastolic 80–82; O2SAT 95–96
[2024-02-04] MEDS ORDERED: HEPARIN SODIUM,PORCINE 5,000 UNITS/ML VIAL IV NR (17:00)
[2024-02-05 00:22] VITALS: O2SAT 96
[2024-02-05 01:45] VITALS: BP 186/74
[2024-02-05 04:45] VITALS: O2SAT 97
[2024-02-05 07:42] LABS: ALBUMIN 2.9 gm/dL (3.4-5.0); BILIRUBIN TOTAL 0.35 mg/dL (0.3-1.2); CALCIUM 8.6 mg/dL (8.5-10.1); CREATININE SERUM 2.58 mg/dL (0.55-1.02); GFR 17.57; GLOBULINA 3.6 G/DL (2.4-3.5); POTASSIUM 4.17 mEq/L (3.5-5.1); TOTAL PROTEIN 6.5 gm/dL (6.4-8.2)
[2024-02-05 09:55] VITALS: BP 190/74
[2024-02-05 14:38] VITALS: O2SAT 96
[2024-02-05 17:15] VITALS: BP 151/66
[2024-02-06] VITALS (9 sets, daily range): BP systolic 152–168; BP diastolic 67–71; O2SAT 93–100
[2024-02-07] VITALS (9 sets, daily range): BP systolic 140–182; BP diastolic 60–78; O2SAT 95–100
[2024-02-07] MEDS ORDERED: HEPARIN SODIUM,PORCINE 5,000 UNITS/ML VIAL ONE ×2 (17:00→17:01)
[2024-02-08] VITALS (9 sets, daily range): BP systolic 156–161; BP diastolic 59–68; O2SAT 96–99
[2024-02-08] MEDS ORDERED: DOXAZOSIN MESYLATE 4 MG TABLET PO SCH (09:00)
[2024-02-08] MEDS ORDERED: DOXAZOSIN MESYLATE PO SCH (09:00)
[2024-02-08 18:31] LABS: MEAN CELL VOLUME 87.3 fL (80.00-100.00); MEAN CORPUSCULAR HEMOGLOBIN 30.1 pg (27.00-32.0); MEAN CORPUSCULAR HGB CONC 34.5 g/dl (32.0-36.0); PLATELET COUNT 282 K/uL (150-450); RED BLOOD COUNT 3.67 M/uL (4.00-6.00); RED CELL DISTRIBUTION WIDTH 15.9 % (11.5-14.5)
[2024-02-08 18:57] LABS: ALBUMIN 2.7 gm/dL (3.4-5.0); BILIRUBIN TOTAL 0.26 mg/dL (0.3-1.2); CALCIUM 8.1 mg/dL (8.5-10.1); CREATININE SERUM 3.9 mg/dL (0.55-1.02); GFR 10.9; GLOBULINA 3.5 G/DL (2.4-3.5); POTASSIUM 4.44 mEq/L (3.5-5.1); TOTAL PROTEIN 6.2 gm/dL (6.4-8.2)
[2024-02-09] VITALS (8 sets, daily range): BP systolic 136–177; BP diastolic 53–61; O2SAT 94–98
[2024-02-09] MEDS ORDERED: INSULIN NPH HUM/REG INSULIN HM 1,000 UNIT/10 ML UNITS SUBCUTANEO SCH (08:00)
[2024-02-09 09:48] LABS: PH,URINE 5.5 (5.0-8.0); URINE APPEARANCE Clear; URINE BILIRRUBIN Negative (NEGATIVE); URINE BLOOD Negative; URINE COLOR Yellow; URINE GLUCOSE Negative (NEGATIVE); URINE KETONE Negative (NEGATIVE); URINE LEUKOCYTE Small; URINE NITRATE Negative; URINE PROTEIN 30 (NEGATIVE); URINE UROBILINOGEN 0.2 E.U./dl
[2024-02-09 09:52] LABS: URINE EPITHELIAL CELLS 8.6 uL (0.0-38.8); URINE WBC 36.6 uL (0.0-23.2)
[2024-02-09 10:24] LABS: URINE RBC 0.1 uL (0.0-20.8)
[2024-02-09] MEDS ORDERED: HEPARIN SODIUM,PORCINE 5,000 UNITS/ML VIAL IV NR (17:00)
[2024-02-09] MEDS ORDERED: INSULIN LISPRO 1,000 UNIT/10 ML UNITS SUBCUTANEO SCH (17:00)
[2024-02-10] VITALS (10 sets, daily range): BP systolic 144–175; BP diastolic 53–69; O2SAT 90–100
[2024-02-11] VITALS (9 sets, daily range): BP systolic 139–170; BP diastolic 57–72; O2SAT 93–98
[2024-02-11 12:36] LABS: CALCIUM 8.9 mg/dL (8.5-10.1); CREATININE SERUM 3.26 mg/dL (0.55-1.02); GFR 13.41; POTASSIUM 5.03 mEq/L (3.5-5.1)
[2024-02-11] MEDS ORDERED: HEPARIN SODIUM,PORCINE 5,000 UNITS/ML VIAL ONE (17:53)
[2024-02-12] VITALS (8 sets, daily range): BP systolic 149–170; BP diastolic 50–69; O2SAT 94–98
[2024-02-12 07:39] LABS: HEMATOCRIT 32.1 % (36.0-45.00); HEMOGLOBIN 10.9 g/dL (12.0-15.00); MEAN CELL VOLUME 86.1 fL (80.00-100.00); MEAN CORPUSCULAR HEMOGLOBIN 29.2 pg (27.00-32.0); MEAN CORPUSCULAR HGB CONC 33.9 g/dl (32.0-36.0); PLATELET COUNT 260 K/uL (150-450); RED BLOOD COUNT 3.72 M/uL (4.00-6.00); RED CELL DISTRIBUTION WIDTH 16.6 % (11.5-14.5)
[2024-02-12] MEDS ORDERED: ONDANSETRON HCL 2 MG/ML VIAL IV STA (15:07)
[2024-02-12] MEDS ORDERED: ONDANSETRON HCL 2 MG/ML VIAL IV PRN (15:15)
[2024-02-13] VITALS (9 sets, daily range): BP systolic 113–174; BP diastolic 64–79; O2SAT 85–97
[2024-02-14] VITALS (7 sets, daily range): BP systolic 156–175; BP diastolic 64–81; O2SAT 96–100
[2024-02-15] VITALS (10 sets, daily range): BP systolic 140–190; BP diastolic 64–79; O2SAT 94–99
[2024-02-15] MEDS ORDERED: HEPARIN SODIUM,PORCINE 5,000 UNITS/ML VIAL IV STA (00:24)
[2024-02-15] MEDS ORDERED: ISOSORBIDE DINITRATE 20 MG TABLET PO SCH (01:00)
[2024-02-15] MEDS ORDERED: ISOSORBIDE DINITRATE 30 MG TABLET PO SCH (13:00)
[2024-02-16] VITALS (8 sets, daily range): BP systolic 134–166; BP diastolic 54–66; O2SAT 96–98
[2024-02-16] MEDS ORDERED: HEPARIN SODIUM,PORCINE 5,000 UNITS/ML VIAL IV NR (17:15)
[2024-02-17] VITALS (8 sets, daily range): BP systolic 123–186; BP diastolic 50–89; O2SAT 94–97
[2024-02-18] VITALS (8 sets, daily range): BP systolic 125–167; BP diastolic 54–57; O2SAT 93–97
[2024-02-18] MEDS ORDERED: HEPARIN SODIUM,PORCINE 5,000 UNITS/ML VIAL ONE (16:59)
[2024-02-18] MEDS ORDERED: HEPARIN SODIUM,PORCINE 5,000 UNITS/ML VIAL IV NR (17:00)
[2024-02-19 02:13] VITALS: BP 145/66; O2SAT 100
[2024-02-19 09:11] VITALS: BP 169/63; O2SAT 94
[2024-02-19 17:21] VITALS: O2SAT 95
[2024-02-19 17:47] VITALS: BP 160/70; O2SAT 95
[2024-02-19 21:23] VITALS: O2SAT 95
[2024-02-20] VITALS (8 sets, daily range): BP systolic 160–186; BP diastolic 63–92; O2SAT 95–100
[2024-02-20 05:07] LABS: HEMATOCRIT 34.9 % (36.0-45.00); HEMOGLOBIN 11.8 g/dL (12.0-15.00); MEAN CELL VOLUME 88.5 fL (80.00-100.00); MEAN CORPUSCULAR HGB CONC 33.9 g/dl (32.0-36.0); PLATELET COUNT 257 K/uL (150-450); RED BLOOD COUNT 3.94 M/uL (4.00-6.00); RED CELL DISTRIBUTION WIDTH 16.1 % (11.5-14.5)
[2024-02-20 05:18] LABS: ALBUMIN 2.9 gm/dL (3.4-5.0); BILIRUBIN TOTAL 0.33 mg/dL (0.3-1.2); CALCIUM 8.7 mg/dL (8.5-10.1); CREATININE SERUM 3.62 mg/dL (0.55-1.02); GFR 11.88; GLOBULINA 3.8 G/DL (2.4-3.5); POTASSIUM 5.03 mEq/L (3.5-5.1); TOTAL PROTEIN 6.7 gm/dL (6.4-8.2)
[2024-02-20] MEDS ORDERED: LOSARTAN POTASSIUM 100 MG TABLET PO SCH (15:32)
[2024-02-21] VITALS (9 sets, daily range): BP systolic 124–165; BP diastolic 51–64; O2SAT 93–97
[2024-02-21] MEDS ORDERED: HEPARIN SODIUM,PORCINE 5,000 UNITS/ML VIAL IV SCH (14:30)
[2024-02-22] VITALS (7 sets, daily range): BP systolic 122–175; BP diastolic 52–76; O2SAT 95–97
[2024-02-23] VITALS (7 sets, daily range): BP systolic 140–155; BP diastolic 58–67; O2SAT 97–98
[2024-02-24] VITALS (9 sets, daily range): BP systolic 153–160; BP diastolic 55–72; O2SAT 95–100
[2024-02-25] VITALS (8 sets, daily range): BP systolic 142–183; BP diastolic 61–75; O2SAT 95–100
[2024-02-25] MEDS ORDERED: HEPARIN SODIUM,PORCINE 5,000 UNITS/ML VIAL IV NR (16:15)
[2024-02-26] VITALS (10 sets, daily range): BP systolic 127–160; BP diastolic 57–71; O2SAT 95–98
[2024-02-27] VITALS (9 sets, daily range): BP systolic 162–177; BP diastolic 55–63; O2SAT 93–98
[2024-02-28] VITALS (8 sets, daily range): BP systolic 135–191; BP diastolic 52–61; O2SAT 92–97
[2024-02-28 07:04] LABS: HEMATOCRIT 35.1 % (36.0-45.00); HEMOGLOBIN 11.8 g/dL (12.0-15.00); MEAN CELL VOLUME 89.4 fL (80.00-100.00); MEAN CORPUSCULAR HEMOGLOBIN 30.1 pg (27.00-32.0); MEAN CORPUSCULAR HGB CONC 33.7 g/dl (32.0-36.0); PLATELET COUNT 262 K/uL (150-450); RED BLOOD COUNT 3.93 M/uL (4.00-6.00); RED CELL DISTRIBUTION WIDTH 16.2 % (11.5-14.5)
[2024-02-28 08:11] LABS: ALBUMIN 2.8 gm/dL (3.4-5.0); CALCIUM 8.6 mg/dL (8.5-10.1); PHOSPHOROUS 4.3 mg/dL (2.5-4.9)
[2024-02-28 09:01] LABS: GFR 9.15
[2024-02-28 09:04] LABS: CREATININE SERUM 4.54 mg/dL (0.55-1.02); POTASSIUM 6.06 mEq/L (3.5-5.1)
[2024-02-28] MEDS ORDERED: FUROsemide 20 MG TABLET PO SCH (18:40)
[2024-02-29] VITALS (7 sets, daily range): BP systolic 111–146; BP diastolic 50–66; O2SAT 95–99
[2024-02-29 07:33] LABS: ALBUMIN 2.9 gm/dL (3.4-5.0); CREATININE SERUM 3.19 mg/dL (0.55-1.02); GFR 13.75; PHOSPHOROUS 3.6 mg/dL (2.5-4.9); POTASSIUM 5.55 mEq/L (3.5-5.1)
[2024-02-29] MEDS ORDERED: SODIUM POLYSTYRENE SULFONATE 30G/8 TSP PO SCH (09:00)
[2024-03-01 04:53] VITALS: O2SAT 94
[2024-03-01 08:59] VITALS: O2SAT 94
[2024-03-01 09:00] VITALS: BP 145/60; O2SAT 95
[2024-03-01 13:39] VITALS: O2SAT 95
[2024-03-01] MEDS ORDERED: HEPARIN SODIUM,PORCINE 5,000 UNITS/ML VIAL IV NR (17:00)
[2024-03-01 17:23] VITALS: BP 107/71
[2024-03-01 19:59] VITALS: O2SAT 96
[2024-03-02] VITALS (10 sets, daily range): BP systolic 180–200; BP diastolic 65–80; O2SAT 92–98
[2024-03-03] VITALS (8 sets, daily range): BP systolic 108–200; BP diastolic 50–77; O2SAT 95–97
[2024-03-04] VITALS (9 sets, daily range): BP systolic 137–158; BP diastolic 57–76; O2SAT 94–100
[2024-03-05] VITALS (8 sets, daily range): BP systolic 123–170; BP diastolic 57–65; O2SAT 94–96
[2024-03-05 08:10] LABS: HEMATOCRIT 35.7 % (36.0-45.00); HEMOGLOBIN 12.1 g/dL (12.0-15.00); MEAN CELL VOLUME 89.8 fL (80.00-100.00); MEAN CORPUSCULAR HEMOGLOBIN 30.3 pg (27.00-32.0); MEAN CORPUSCULAR HGB CONC 33.7 g/dl (32.0-36.0); PLATELET COUNT 248 K/uL (150-450); RED BLOOD COUNT 3.98 M/uL (4.00-6.00); RED CELL DISTRIBUTION WIDTH 16.1 % (11.5-14.5)
[2024-03-05 08:38] LABS: ALBUMIN 2.9 gm/dL (3.4-5.0); BILIRUBIN TOTAL 0.25 mg/dL (0.3-1.2); CALCIUM 8.5 mg/dL (8.5-10.1); CREATININE SERUM 3.5 mg/dL (0.55-1.02); GFR 12.36; GLOBULINA 3.3 G/DL (2.4-3.5); POTASSIUM 5.02 mEq/L (3.5-5.1); TOTAL PROTEIN 6.2 gm/dL (6.4-8.2)
[2024-03-06 01:00] VITALS: O2SAT 96
[2024-03-06 02:19] VITALS: BP 155/72; O2SAT 97
[2024-03-06 05:00] VITALS: O2SAT 95
[2024-03-06 08:30] VITALS: BP 167/80
[2024-03-06 17:42] VITALS: BP 140/68; O2SAT 97
[2024-03-06] MEDS ORDERED: RETACRIT10000 UNIT SUBCUTANEO (18:59)
[2024-03-06] MEDS ORDERED: CARDURA XL4 MG PO (19:00)
[2024-03-06] MEDS ORDERED: LOSARTAN POTAS100 MG PO (19:01)
[2024-03-06] MEDS ORDERED: TOPROL XL25 M1 PO (19:02)
[2024-03-06] MEDS ORDERED: PROCARDIA XL90 MG PO (19:02)
[2024-03-06] MEDS ORDERED: RANOLAZINE ER500 MG PO (19:03)
[2024-03-06] MEDS ORDERED: HYDRALAZINE HCL50 MG PO (19:04)
[2024-03-06] MEDS ORDERED: FAMOTIDINE20 MG PO (19:04)
[2024-03-06] MEDS ORDERED: SYNTHROID100 MCG PO (19:05)
[2024-03-06] MEDS ORDERED: INSULIN LI100 UNIT/1 SUBCUTANEO (19:06)
[2024-03-06] MEDS ORDERED: HUMULIN 70100 UNIT/2 SUBCUTANEO (19:06)
[2024-03-06] MEDS ORDERED: CLOTRIMAZOLE45 G1 TOP (19:07)
[2024-03-06] MEDS ORDERED: CILOSTAZOL50 MG (19:10)
[2024-03-06] MEDS ORDERED: GABAPENTIN600 MG (19:11)
[2024-03-06] MEDS ORDERED: ELIQUIS2.5 MG PO (19:12)
[2024-03-06] MEDS ORDERED: ROSUVASTATIN CA20 MG PO (19:12)
[2024-03-06] MEDS ORDERED: MEMANTINE HCL5 MG PO (19:27)
[2024-03-06] MEDS ORDERED: LASIX20 MG PO (19:43)
[2024-03-07 03:05] VITALS: BP 170/69; O2SAT 93
[2024-03-07 06:22] VITALS: BP 177/70
[2024-03-07 09:31] VITALS: BP 180/78
== END 2024-03-07 17:23 | disposition home or self-care (01) | DRG 252 ==
LOC: ER 15:06 → ICU-2 19:05 → MEDJ 19:05 → ICU 19:05 → MEDJ 01-13 20:34 → ICU 01-15 10:30 → MEDJ 01-25 19:38 → MEDI 02-01 14:53 → MEDJ 03-01 09:47
PROVIDERS: General Practice; Internal Medicine; Internal Medicine Cardiovascular Disease; Internal Medicine Hematology & Oncology; Internal Medicine Infectious Disease; Internal Medicine Nephrology; Radiology Vascular & Interventional Radiology; ADMIT Internal Medicine Cardiovascular Disease; ATTEND Internal Medicine Cardiovascular Disease
PROC: B246ZZZ Ultrasonography of Right and Left Heart (ICD-10-PCS; 2024-01-08)
PROC: 3E0F7GC Introduction of Other Therapeutic Substance into Respiratory Tract, Via Natural or Artificial Opening (ICD-10-PCS; 2024-01-09)
PROC: 3E0F7SF Introduction of Other Gas into Respiratory Tract, Via Natural or Artificial Opening (ICD-10-PCS; 2024-01-09)
PROC: 30233N1 Transfusion of Nonautologous Red Blood Cells into Peripheral Vein, Percutaneous Approach (ICD-10-PCS; 2024-01-11)
PROC: 4A12X4Z Monitoring of Cardiac Electrical Activity, External Approach (ICD-10-PCS; 2024-01-13)
PROC: 05HM33Z Insertion of Infusion Device into Right Internal Jugular Vein, Percutaneous Approach (ICD-10-PCS; 2024-01-18)
PROC: B543ZZA Ultrasonography of Right Jugular Veins, Guidance (ICD-10-PCS; 2024-01-18)
PROC: 5A1D70Z Performance of Urinary Filtration, Intermittent, Less than 6 Hours Per Day (ICD-10-PCS; 2024-01-19)
PROC: 5A1D70Z Performance of Urinary Filtration, Intermittent, Less than 6 Hours Per Day (ICD-10-PCS; 2024-01-21)
PROC: 5A1D70Z Performance of Urinary Filtration, Intermittent, Less than 6 Hours Per Day (ICD-10-PCS; 2024-01-24)
PROC: 5A1D70Z Performance of Urinary Filtration, Intermittent, Less than 6 Hours Per Day (ICD-10-PCS; 2024-01-26)
PROC: 02H633Z Insertion of Infusion Device into Right Atrium, Percutaneous Approach (ICD-10-PCS; 2024-01-27)
PROC: 0JH63XZ Insertion of Tunneled Vascular Access Device into Chest Subcutaneous Tissue and Fascia, Percutaneous Approach (ICD-10-PCS; 2024-01-27)
PROC: B518YZA Fluoroscopy of Superior Vena Cava using Other Contrast, Guidance (ICD-10-PCS; 2024-01-27)
PROC: 05PY03Z Removal of Infusion Device from Upper Vein, Open Approach (ICD-10-PCS; principal; 2024-01-27 22:00)
PROC: 5A1D70Z Performance of Urinary Filtration, Intermittent, Less than 6 Hours Per Day (ICD-10-PCS; 2024-01-28)
PROC: 5A1D70Z Performance of Urinary Filtration, Intermittent, Less than 6 Hours Per Day (ICD-10-PCS; 2024-01-31)
PROC: 5A1D70Z Performance of Urinary Filtration, Intermittent, Less than 6 Hours Per Day (ICD-10-PCS; 2024-02-02)
PROC: 5A1D70Z Performance of Urinary Filtration, Intermittent, Less than 6 Hours Per Day (ICD-10-PCS; 2024-02-04)
PROC: 5A1D70Z Performance of Urinary Filtration, Intermittent, Less than 6 Hours Per Day (ICD-10-PCS; 2024-02-07)
PROC: 5A1D70Z Performance of Urinary Filtration, Intermittent, Less than 6 Hours Per Day (ICD-10-PCS; 2024-02-09)
PROC: 5A1D70Z Performance of Urinary Filtration, Intermittent, Less than 6 Hours Per Day (ICD-10-PCS; 2024-02-11)
PROC: 5A1D70Z Performance of Urinary Filtration, Intermittent, Less than 6 Hours Per Day (ICD-10-PCS; 2024-02-14)
PROC: 5A1D70Z Performance of Urinary Filtration, Intermittent, Less than 6 Hours Per Day (ICD-10-PCS; 2024-02-16)
PROC: 5A1D70Z Performance of Urinary Filtration, Intermittent, Less than 6 Hours Per Day (ICD-10-PCS; 2024-02-18)
PROC: 5A1D70Z Performance of Urinary Filtration, Intermittent, Less than 6 Hours Per Day (ICD-10-PCS; 2024-02-21)
PROC: 5A1D70Z Performance of Urinary Filtration, Intermittent, Less than 6 Hours Per Day (ICD-10-PCS; 2024-02-23)
PROC: 5A1D70Z Performance of Urinary Filtration, Intermittent, Less than 6 Hours Per Day (ICD-10-PCS; 2024-02-25)
PROC: 5A1D70Z Performance of Urinary Filtration, Intermittent, Less than 6 Hours Per Day (ICD-10-PCS; 2024-02-28)
PROC: 5A1D70Z Performance of Urinary Filtration, Intermittent, Less than 6 Hours Per Day (ICD-10-PCS; 2024-03-01)
PROC: 5A1D70Z Performance of Urinary Filtration, Intermittent, Less than 6 Hours Per Day (ICD-10-PCS; 2024-03-03)
PROC: 5A1D70Z Performance of Urinary Filtration, Intermittent, Less than 6 Hours Per Day (ICD-10-PCS; 2024-03-06)
DX: I21.4 Non-ST elevation (NSTEMI) myocardial infarction (principal); I50.33 Acute on chronic diastolic (congestive) heart failure; N18.6 End stage renal disease; J96.01 Acute respiratory failure with hypoxia; N17.9 Acute kidney failure, unspecified; I13.0 Hypertensive heart and chronic kidney disease with heart failure and stage 1 through stage 4 chronic kidney disease, or unspecified chronic kidney disease; N18.4 Chronic kidney disease, stage 4 (severe); I25.810 Atherosclerosis of coronary artery bypass graft(s) without angina pectoris; I48.20 Chronic atrial fibrillation, unspecified; N39.0 Urinary tract infection, site not specified; I24.9 Acute ischemic heart disease, unspecified; E11.22 Type 2 diabetes mellitus with diabetic chronic kidney disease; E11.65 Type 2 diabetes mellitus with hyperglycemia; D63.1 Anemia in chronic kidney disease; D64.89 Other specified anemias; E03.9 Hypothyroidism, unspecified; R07.89 Other chest pain; B95.7 Other staphylococcus as the cause of diseases classified elsewhere; E11.649 Type 2 diabetes mellitus with hypoglycemia without coma; E87.5 Hyperkalemia; R55 Syncope and collapse; I73.89 Other specified peripheral vascular diseases; G30.8 Other Alzheimer's disease; F02.80 Dementia in other diseases classified elsewhere, unspecified severity, without behavioral disturbance, psychotic disturbance, mood disturbance, and anxiety; F01.50 Vascular dementia, unspecified severity, without behavioral disturbance, psychotic disturbance, mood disturbance, and anxiety; Z79.4 Long term (current) use of insulin; Z79.85 Long-term (current) use of injectable non-insulin antidiabetic drugs; Z99.2 Dependence on renal dialysis; Z95.818 Presence of other cardiac implants and grafts

== ENCOUNTER 2024-06-01 21:24 | Inpatient (IN) | payer OTHER ==
[~2024-06-01] VITALS: Ht 165.1 cm; Wt 83.9 kg
[~2024-06-01 21:24] MED LIST changes: +CILOSTAZOL50 MG; +CLOTRIMAZOLE45 G1 TOP; +ELIQUIS2.5 MG PO; +FAMOTIDINE20 MG PO; +GABAPENTIN600 MG; +HUMULIN 70100 UNIT/2 SUBCUTANEO; +HYDRALAZINE HCL50 MG PO; +INSULIN LI100 UNIT/1 SUBCUTANEO; +LASIX20 MG PO; +LOSARTAN POTAS100 MG PO; +MEMANTINE HCL5 MG PO; +PROCARDIA XL90 MG PO; +RANOLAZINE ER500 MG PO; +RETACRIT10000 UNIT SUBCUTANEO; +ROSUVASTATIN CA20 MG PO; +SYNTHROID100 MCG PO; +TOPROL XL25 M1 PO
--- NOTE | 2024-06-01 21:39 | NUR ---
SE RECIBE PTE ALERTA Y ORIENTADA EN AMBULANCIA LA CUAL REFIERE VENIR POR DOLOR EPIGASTRICO, VOMITOS Y DIARREAS DESDELA MANANA DE HOY. SE MIDEN S/V A PTE Y SE UBICA. PTE DE KELSEA. GERBER WIGGINS.
[2024-06-01] MEDS ORDERED: 0.9 % SODIUM CHLORIDE 250 ML IV STA (22:19)
--- NOTE | 2024-06-01 22:30 | NUR ---
SE EDUCA A PTE SOBRE TX MEDICO, SE SONG MUESTRAS DE LABORATORIO UTILIZANDO MEDIDAS ASEPTICAS. SE COLOCA H/L DOLORES DE EDEMA. SE ADMINISTRAN MEDICAMENTOS LOS CUALES TOLERA. SE REALIZA EKG A PTE PATTI ORDEN MEDICA.
[2024-06-01 23:20] LABS: HEMATOCRIT 33.6 % (36.0-45.00); HEMOGLOBIN 11.5 g/dL (12.0-15.00); MEAN CELL VOLUME 85.9 fL (80.00-100.00); MEAN CORPUSCULAR HEMOGLOBIN 29.3 pg (27.00-32.0); MEAN CORPUSCULAR HGB CONC 34.1 g/dl (32.0-36.0); PLATELET COUNT 254 K/uL (150-450); RED BLOOD COUNT 3.91 M/uL (4.00-6.00); RED CELL DISTRIBUTION WIDTH 14.8 % (11.5-14.5)
[2024-06-01 23:39] LABS: INR 0.99; PARTIAL THROMBOPLASTIN TIME 26.2 SECONDS (22.0-34.0); PROTHROMBIN TIME 10.8 SECONDS (9.0-11.5)
[2024-06-01 23:44] LABS: ALBUMIN 3.5 gm/dL (3.4-5.0); BILIRUBIN TOTAL 0.32 mg/dL (0.3-1.2); CALCIUM 8.9 mg/dL (8.5-10.1); CREATININE SERUM 3.61 mg/dL (0.55-1.02); GFR 11.92; GLOBULINA 4.1 G/DL (2.4-3.5); POTASSIUM 4.7 mEq/L (3.5-5.1); TOTAL PROTEIN 7.6 gm/dL (6.4-8.2)
[2024-06-02] VITALS (13 sets, daily range): BP systolic 131–204; BP diastolic 57–80; O2SAT 95–100
[2024-06-02] MEDS ORDERED: SODIUM CHLORIDE 0.45 % 1,000 ML IV SCH (02:15)
[2024-06-02] MEDS ORDERED: FAMOtidine 20 MG TABLET PO SCH (02:24)
[2024-06-02] MEDS ORDERED: ENALAPRILAT DIHYDRATE 1.25 MG/ML VIAL IV PRN (02:30)
[2024-06-02] MEDS ORDERED: DEXTROSE 50 % IN WATER 0.5 G/ML DISP.SYRIN IV PRN (02:30)
[2024-06-02] MEDS ORDERED: INSULIN LISPRO 1,000 UNIT/10 ML UNITS SUBCUTANEO PRN (02:30)
[2024-06-02] MEDS ORDERED: ENOXAPARIN SODIUM 30 MG/0.3 ML SYRINGE SUBCUTANEO STA (02:32)
[2024-06-02] MEDS ORDERED: LEVOTHYROXINE SODIUM 150 MCG TABLET PO SCH (06:00)
[2024-06-02] MEDS ORDERED: DOXAZOSIN MESYLATE 4 MG TABLET PO SCH (09:24)
[2024-06-02] MEDS ORDERED: LOSARTAN POTASSIUM 100 MG TABLET PO SCH (09:24)
[2024-06-02] MEDS ORDERED: ISOSORBIDE MONONITRATE 60 MG TABLET PO SCH (09:26)
[2024-06-03] VITALS (9 sets, daily range): BP systolic 157–187; BP diastolic 59–78; O2SAT 95–98
[2024-06-03 08:24] LABS: C-REACTIVE PROTEIN 11.1 MG/DL (0.00-0.29)
[2024-06-03 08:40] LABS: TSH 3.47 uIU/mL (0.358-3.74)
[2024-06-03 08:49] LABS: INR 1.01
[2024-06-03] MEDS ORDERED: hydrALAZINE HCL 25 MG TABLET PO SCH ×2 (09:00→21:00)
[2024-06-03] MEDS ORDERED: ENOXAPARIN SODIUM 30 MG/0.3 ML SYRINGE SUBCUTANEO SCH (18:15)
[2024-06-03] MEDS ORDERED: LORazepam 2 MG/ML VIAL IV ONE (18:15)
[2024-06-03] MEDS ORDERED: PANTOPRAZOLE SODIUM 40 MG/VIAL VIAL IV ONE (18:15)
[2024-06-03] MEDS ORDERED: METOPROLOL SUCCINATE 25 MG TAB.SR.24H PO SCH (18:51)
[2024-06-03] MEDS ORDERED: CEFTRIAXONE SODIUM 2,000 MG VIAL IV STA (19:06)
[2024-06-04] VITALS (10 sets, daily range): BP systolic 119–194; BP diastolic 60–76; O2SAT 90–99
[2024-06-04] MEDS ORDERED: ISOSORBIDE MONONITRATE 60 MG TABLET PO SCH (09:00)
[2024-06-05] VITALS (8 sets, daily range): BP systolic 109–170; BP diastolic 51–68; O2SAT 96–100
[2024-06-05] MEDS ORDERED: CEFTRIAXONE SODIUM 2,000 MG VIAL IV SCH ×2 (09:00→13:00)
[2024-06-05] MEDS ORDERED: HEPARIN SODIUM,PORCINE 5,000 UNITS/ML VIAL SPEPROC ONE (17:00)
[2024-06-05] MEDS ORDERED: INSULIN LI100 UNIT/1 SQ (18:28)
[2024-06-05] MEDS ORDERED: IRBESARTAN150 MG PO (18:43)
[2024-06-05] MEDS ORDERED: INSULIN LI100 UNIT/1 SUBCUTANEO (18:46)
[2024-06-05] MEDS ORDERED: DUI500 PO (18:46)
[2024-06-05] MEDS ORDERED: FAMOTIDINE20 MG PO (18:46)
[2024-06-05] MEDS ORDERED: HYDRALAZINE HCL25 MG PO (18:46)
[2024-06-05] MEDS ORDERED: DOXAZOSIN MESYLA4 MG PO (18:46)
[2024-06-05] MEDS ORDERED: ELIQUIS2.5 MG PO (18:49)
[2024-06-05] MEDS ORDERED: LOSARTAN POTAS100 MG PO (18:50)
== END 2024-06-05 20:10 | disposition home or self-care (01) | DRG 314 ==
LOC: ER 21:24 → SURG 06-02 02:20 → SEC-K 06-02 02:20 → O/R 06-02 11:32 → SEC-K 06-02 11:33 → MEDJ 06-02 14:46 → MEDI 06-04 10:42
PROVIDERS: Emergency Medicine; ADMIT Internal Medicine Cardiovascular Disease; ATTEND Internal Medicine Cardiovascular Disease
PROC: B24BYZZ Ultrasonography of Heart with Aorta using Other Contrast (ICD-10-PCS; principal; 2024-06-03)
DX: I95.9 Hypotension, unspecified (principal); N18.6 End stage renal disease; I25.10 Atherosclerotic heart disease of native coronary artery without angina pectoris; I10 Essential (primary) hypertension; Z99.2 Dependence on renal dialysis

== ENCOUNTER 2024-07-12 22:31 | Emergency (ER) | payer OTHER ==
[~2024-07-12] VITALS: Ht 157.5 cm; Wt 59.0 kg
[~2024-07-12 22:31] MED LIST changes: +DOXAZOSIN MESYLA4 MG PO; +DUI500 PO; +HYDRALAZINE HCL25 MG PO; +INSULIN LI100 UNIT/1 SQ; +IRBESARTAN150 MG PO
[2024-07-12 23:44] VITALS: BP 174/64; O2SAT 98
[2024-07-13 01:50] LABS: HEMATOCRIT 33.4 % (36.0-45.00); HEMOGLOBIN 11.2 g/dL (12.0-15.00); MEAN CELL VOLUME 92.7 fL (80.00-100.00); MEAN CORPUSCULAR HGB CONC 33.4 g/dl (32.0-36.0); PLATELET COUNT 199 K/uL (150-450); RED BLOOD COUNT 3.61 M/uL (4.00-6.00); RED CELL DISTRIBUTION WIDTH 15.5 % (11.5-14.5)
[2024-07-13 02:30] LABS: INR 1.02; PROTHROMBIN TIME 11.1 SECONDS (9.0-11.5)
[2024-07-13 02:33] LABS: URINE APPEARANCE Clear; URINE BILIRRUBIN Negative (NEGATIVE); URINE BLOOD Negative; URINE COLOR Yellow; URINE GLUCOSE Negative (NEGATIVE); URINE KETONE Negative (NEGATIVE); URINE LEUKOCYTE Moderate; URINE NITRATE Negative; URINE PROTEIN 30 (NEGATIVE); URINE UROBILINOGEN 0.2 E.U./dl
[2024-07-13 02:36] LABS: URINE EPITHELIAL CELLS 11.3 uL (0.0-38.8); URINE WBC 393.7 uL (0.0-23.2)
[2024-07-13 02:37] LABS: URINE RBC 0.8 uL (0.0-20.8)
[2024-07-13 02:40] LABS: ALBUMIN 3.2 gm/dL (3.4-5.0); BILIRUBIN TOTAL 0.29 mg/dL (0.3-1.2); CALCIUM 8.8 mg/dL (8.5-10.1); CREATININE SERUM 2.85 mg/dL (0.55-1.02); GFR 15.66; GLOBULINA 3.8 G/DL (2.4-3.5); POTASSIUM 4.52 mEq/L (3.5-5.1)
[2024-07-13 02:42] LABS: PARTIAL THROMBOPLASTIN TIME 98.3 SECONDS (22.0-34.0)
== END 2024-07-13 05:41 ==
LOC: ER 22:33
PROVIDERS: General Practice
DX: R55 Syncope and collapse (principal); E11.9 Type 2 diabetes mellitus without complications; Z79.4 Long term (current) use of insulin; I20.89 Other forms of angina pectoris; I11.9 Hypertensive heart disease without heart failure; Z86.73 Personal history of transient ischemic attack (TIA), and cerebral infarction without residual deficits

== ENCOUNTER 2024-10-23 06:03 | Inpatient (IN) | payer OTHER ==
[~2024-10-23] VITALS: Ht 162.6 cm; Wt 86.2 kg
--- NOTE | 2024-10-23 06:28 | NUR ---
SE RECIBE PTE ALERTA Y ORIENTADA EN PERSONA EN COMPANIA DE FAMILIAR Y PARAMEDICOS. EL MISMO REFIERE DIFICULTAS RESPIRATORIA DESDE HOY EN LA MANANA. SE REALIZA EKG Y SE PRESNETA A DR. MAJANOE EL CUAL EVALUA Y FIRMA EL MISMO. CANLIZADA EN MANO IZQUIERDA CON ANGIO #20 CON .9NSS DE AMBULANCIA. SE OBSERVA AKOSUA EN LADO DERECHO.
[2024-10-23] MEDS ORDERED: LEVALBUTEROL HCL 0.63 MG/3 ML SOLUTION IH SCH ×2 (07:45→17:00)
--- NOTE | 2024-10-23 08:23 | NUR ---
SE ORIENTA SOBRE TRATAMIENTO MEDICO. PTE CANALIZADA POR AMBULANCIA. SE SONG MUESTRAS DE LAB. PENDITE TERAPIAS Y ABG
[2024-10-23 08:31] LABS: BASO % 0.4 % (0.1-1.2); EOS # 0.11 (0.04-0.54); EOS % 0.9 % (0.7-7.0); HEMATOCRIT 30.6 % (34.1-44.9); HEMOGLOBIN 10.8 g/dL (11.2-15.7); LYMPH # 1.49 (1.18-3.74); LYMPH % 11.7 % (19.3-53.1); MONO # 0.86 (0.24-0.82); MONO % 6.7 % (4.7-12.5); NEUT # 10.22 (1.56-6.13); NEUT % 79.9 % (34.0-71.1); PLATELET COUNT 270 K/uL (163-369); RED BLOOD COUNT 3.48 M/uL (3.93-5.22); RED CELL DISTRIBUTION WIDTH 13.9 % (11.6-14.4)
[2024-10-23 08:42] LABS: INFLUENZA A AG NEGATIVE (NEGATIVE)
[2024-10-23 08:43] LABS: COVID-19 AG NEGATIVE (NEGATIVE)
[2024-10-23 08:57] LABS: INR 1.05; PARTIAL THROMBOPLASTIN TIME 30.8 SECONDS (22.0-34.0); PROTHROMBIN TIME 11.4 SECONDS (9.0-11.5)
[2024-10-23 09:00] LABS: ALBUMIN 2.9 gm/dL (3.4-5.0); BILIRUBIN TOTAL 0.59 mg/dL (0.3-1.2); CALCIUM 8.4 mg/dL (8.5-10.1); CREATININE SERUM 3.47 mg/dL (0.55-1.02); GFR 12.45; GLOBULINA 4.8 G/DL (2.4-3.5); POTASSIUM 3.91 mEq/L (3.5-5.1); TOTAL PROTEIN 7.7 gm/dL (6.4-8.2)
[2024-10-23] MEDS ORDERED: LEVALBUTEROL HCL 0.63 MG/3 ML SOLUTION IH ONE (09:31)
[2024-10-23 09:45] LABS: ABG PH 7.426 (7.35-7.45); ABG PO2 61.6 mmHg (80-100); ABG pCO2 35.8 mmHg (35-45); BASE EXCESS -0.8 mmol/l; SaO2 91.8 %; Tco2 24.1 mmol/l
[2024-10-23 10:27] LABS: allen test SATISFACTORY; mode NASAL CANNULA; o2 36 %; puncture site RADIAL LEFT
[2024-10-23 11:35] LABS: PH,URINE 7.5 (5.0-8.0); URINE APPEARANCE Clear; URINE BILIRRUBIN Negative (NEGATIVE); URINE BLOOD Negative; URINE COLOR Yellow; URINE KETONE Negative (NEGATIVE); URINE LEUKOCYTE Trace; URINE NITRATE Negative
[2024-10-23 11:38] LABS: URINE WBC 2.6 uL (0.0-23.2)
[2024-10-23 12:01] LABS: URINE BACTERIA 3.6 uL (0.0-1933); URINE CAST 0.29 uL (0.0-1.40); URINE EPITHELIAL CELLS 0.4 uL (0.0-38.8); URINE GLUCOSE 100 MG/DL (NEGATIVE); URINE PROTEIN 100 (NEGATIVE); URINE RBC 0.4 uL (0.0-20.8)
[2024-10-23] MEDS ORDERED: AZITHROMYCIN 2 MG/ML REDILUIDO IV STA (16:37)
[2024-10-23] MEDS ORDERED: FUROsemide 40 MG/4 ML VIAL IV STA (16:47)
[2024-10-23] MEDS ORDERED: IPRATROPIUM BROMIDE 0.5 MG/2.5 ML AMPUL.NEB IH ONE (16:49)
[2024-10-23] MEDS ORDERED: LEVALBUTEROL HCL 1.25 MG/3 ML SOLUTION IH ONE (16:49)
[2024-10-23] MEDS ORDERED: IPRATROPIUM BROMIDE 0.5 MG/2.5 ML AMPUL.NEB IH SCH (17:00)
[2024-10-23] MEDS ORDERED: DEXTROSE 50 % IN WATER 0.5 G/ML VIAL IV PRN (17:15)
[2024-10-23] MEDS ORDERED: INSULIN LISPRO 1,000 UNIT/10 ML UNITS SUBCUTANEO PRN (17:15)
[2024-10-23] MEDS ORDERED: ENOXAPARIN SODIUM 40 MG/0.4 ML SYRINGE SUBCUTANEO ONE (18:14)
[2024-10-23] MEDS ORDERED: FUROsemide 40 MG/4 ML VIAL ONE (18:14)
[2024-10-23] MEDS ORDERED: AZITHROMYCIN 500 MG VIAL IV ONE (18:14)
[2024-10-23] MEDS ORDERED: FAMOTIDINE/PF 20 MG/2 ML VIAL ONE (18:15)
[2024-10-23] MEDS ORDERED: INSULIN LISPRO 1,000 UNIT/10 ML UNITS SUBCUTANEO ONE (18:35)
[2024-10-23] MEDS ORDERED: FAMOtidine 20 MG TABLET PO NR (19:00)
[2024-10-23] MEDS ORDERED: ENOXAPARIN SODIUM 30 MG/0.3 ML SYRINGE SUBCUTANEO NR (19:00)
[2024-10-23 19:39] VITALS: O2SAT 98
[2024-10-23] MEDS ORDERED: HEPARIN SODIUM,PORCINE 5,000 UNITS/ML VIAL ONE (21:08)
[2024-10-23] MEDS ORDERED: HEPARIN SODIUM,PORCINE 5,000 UNITS/ML VIAL IJ ONE (21:15)
[2024-10-24] VITALS (7 sets, daily range): BP systolic 152–193; BP diastolic 58–81; O2SAT 90–99
[2024-10-24] MEDS ORDERED: ENOXAPARIN SODIUM 30 MG/0.3 ML SYRINGE SUBCUTANEO SCH (05:00)
[2024-10-24] MEDS ORDERED: LEVOTHYROXINE SODIUM 100 MCG TABLET PO SCH (06:00)
[2024-10-24] MEDS ORDERED: LOSARTAN POTASSIUM 100 MG TABLET PO SCH (09:00)
[2024-10-24] MEDS ORDERED: FAMOtidine 20 MG TABLET PO SCH (09:00)
[2024-10-24] MEDS ORDERED: ATORVASTATIN CALCIUM 10 MG TABLET PO SCH (09:00)
[2024-10-24] MEDS ORDERED: DOXAZOSIN MESYLATE 4 MG TABLET PO SCH (09:00)
[2024-10-24] MEDS ORDERED: hydrALAZINE HCL 50 MG TABLET PO SCH (09:00)
[2024-10-24] MEDS ORDERED: METOPROLOL SUCCINATE 25 MG TAB.SR.24H PO SCH (09:00)
[2024-10-24] MEDS ORDERED: FUROsemide 20 MG TABLET PO SCH (09:00)
[2024-10-24] MEDS ORDERED: INSULIN GLARGINE,HUM.REC.ANLOG 1,000 UNITS/10 ML UNITS SUBCUTANEO SCH (17:00)
[2024-10-25] VITALS (8 sets, daily range): BP systolic 111–187; BP diastolic 50–64; O2SAT 18–100
[2024-10-25] MEDS ORDERED: DOXAZOSIN MESYLATE 8 MG TABLET PO SCH (09:00)
[2024-10-25] MEDS ORDERED: HEPARIN SODIUM,PORCINE 5,000 UNITS/ML VIAL ONE (16:19)
[2024-10-26] VITALS (8 sets, daily range): BP systolic 135–180; BP diastolic 50–66; O2SAT 86–100
[2024-10-26 08:22] LABS: ALBUMIN 2.7 gm/dL (3.4-5.0); BILIRUBIN TOTAL 0.25 mg/dL (0.3-1.2); CALCIUM 8.3 mg/dL (8.5-10.1); CREATININE SERUM 3.69 mg/dL (0.55-1.02); GFR 11.6; GLOBULINA 4.3 G/DL (2.4-3.5); MAGNESIUM 1.8 mg/dL (1.8-2.4); POTASSIUM 4.29 mEq/L (3.5-5.1)
[2024-10-27] VITALS (7 sets, daily range): BP systolic 109–180; BP diastolic 47–54; O2SAT 90–100
[2024-10-27] MEDS ORDERED: INSULIN NPH HUM/REG INSULIN HM 1,000 UNIT/10 ML UNITS SUBCUTANEO SCH (09:00)
[2024-10-27] MEDS ORDERED: HEPARIN SODIUM,PORCINE 5,000 UNITS/ML VIAL IV NR (15:00)
[2024-10-27] MEDS ORDERED: PROCARDIA XL90 MG PO (18:59)
[2024-10-27] MEDS ORDERED: HUMULIN 70100 UNIT/2 SUBCUTANEO (18:59)
[2024-10-27] MEDS ORDERED: RANOLAZINE ER500 MG PO (18:59)
[2024-10-27] MEDS ORDERED: TOPROL XL25 M1 PO (18:59)
[2024-10-27] MEDS ORDERED: SYNTHROID100 MCG PO (18:59)
[2024-10-27] MEDS ORDERED: IRBESARTAN150 MG PO (18:59)
[2024-10-28] VITALS: O2SAT 90
[2024-10-28 00:53] VITALS: BP 166/52
[2024-10-28 05:45] VITALS: O2SAT 90
[2024-10-28 09:06] VITALS: BP 175/55; O2SAT 98
[2024-10-28 09:42] VITALS: O2SAT 100
== END 2024-10-28 12:25 | disposition home or self-care (01) | DRG 682 ==
LOC: ER 06:03 → SEC-K 16:41 → MEDJ 16:41
PROVIDERS: General Practice; ADMIT Internal Medicine Cardiovascular Disease; ATTEND Internal Medicine Cardiovascular Disease
PROC: 4A12X4Z Monitoring of Cardiac Electrical Activity, External Approach (ICD-10-PCS; principal; 2024-10-23)
PROC: 5A1D70Z Performance of Urinary Filtration, Intermittent, Less than 6 Hours Per Day (ICD-10-PCS; 2024-10-23)
PROC: 5A1D70Z Performance of Urinary Filtration, Intermittent, Less than 6 Hours Per Day (ICD-10-PCS; 2024-10-26)
PROC: 5A1D70Z Performance of Urinary Filtration, Intermittent, Less than 6 Hours Per Day (ICD-10-PCS; 2024-10-27)
DX: I13.11 Hypertensive heart and chronic kidney disease without heart failure, with stage 5 chronic kidney disease, or end stage renal disease (principal); N18.6 End stage renal disease; N17.9 Acute kidney failure, unspecified; G30.9 Alzheimer's disease, unspecified; F02.80 Dementia in other diseases classified elsewhere, unspecified severity, without behavioral disturbance, psychotic disturbance, mood disturbance, and anxiety; I10 Essential (primary) hypertension; E03.9 Hypothyroidism, unspecified; E11.40 Type 2 diabetes mellitus with diabetic neuropathy, unspecified; Z79.4 Long term (current) use of insulin; I73.9 Peripheral vascular disease, unspecified; I25.10 Atherosclerotic heart disease of native coronary artery without angina pectoris; I48.91 Unspecified atrial fibrillation; Z99.2 Dependence on renal dialysis

== ENCOUNTER 2024-11-11 12:16 | Inpatient (IN) | payer OTHER ==
[~2024-11-11] VITALS: Ht 160 cm; Wt 68.0 kg
[2024-11-11 14:47] LABS: BASO % 0.4 % (0.1-1.2); EOS # 0.02 (0.04-0.54); EOS % 0.2 % (0.7-7.0); HEMATOCRIT 32.4 % (34.1-44.9); HEMOGLOBIN 11.1 g/dL (11.2-15.7); LYMPH # 1.75 (1.18-3.74); LYMPH % 14.7 % (19.3-53.1); MEAN CORPUSCULAR HEMOGLOBIN 31.2 pg (25.6-32.2); MONO # 1.01 (0.24-0.82); MONO % 8.5 % (4.7-12.5); NEUT # 9.01 (1.56-6.13); NEUT % 75.8 % (34.0-71.1); PLATELET COUNT 321 K/uL (163-369); RED BLOOD COUNT 3.56 M/uL (3.93-5.22); RED CELL DISTRIBUTION WIDTH 13.4 % (11.6-14.4)
[2024-11-11 15:06] LABS: ALBUMIN 2.7 gm/dL (3.4-5.0); BILIRUBIN TOTAL 0.57 mg/dL (0.3-1.2); CALCIUM 9.1 mg/dL (8.5-10.1); CREATININE SERUM 3.16 mg/dL (0.55-1.02); GFR 13.87; GLOBULINA 5.3 G/DL (2.4-3.5); POTASSIUM 4.51 mEq/L (3.5-5.1)
[2024-11-11] MEDS ORDERED: ALBUTEROL SULFATE 1.25 MG/3 ML AMPUL.NEB IH ONE (16:55)
[2024-11-11] MEDS ORDERED: ALBUTEROL SULFATE 3 ML/2.5 MG AMPUL.NEB IH ONE (16:56)
[2024-11-11 17:05] LABS: INFLUENZA A AG NEGATIVE (NEGATIVE); INFLUENZA B AG NEGATIVE (NEGATIVE)
[2024-11-11 17:11] LABS: COVID-19 AG NEGATIVE (NEGATIVE)
[2024-11-11 18:54] LABS: PH,URINE 7.5 (5.0-8.0); URINE APPEARANCE Turbid; URINE BILIRRUBIN Negative (NEGATIVE); URINE BLOOD Small; URINE COLOR Yellow; URINE GLUCOSE Negative (NEGATIVE); URINE KETONE Trace (NEGATIVE); URINE LEUKOCYTE Large; URINE NITRATE Negative
[2024-11-11 18:58] LABS: URINE BACTERIA 7075.8 uL (0.0-1933); URINE CAST 6.62 uL (0.0-1.40); URINE EPITHELIAL CELLS 12.3 uL (0.0-38.8)
[2024-11-11 19:05] LABS: ABG PH 7.458 (7.35-7.45); ABG PO2 83.2 mmHg (80-100); ABG pCO2 35.8 mmHg (35-45); BASE EXCESS 1.3 mmol/l; BICARBONATE 24.7 mmol/l (23-25); SaO2 96.8 %; Tco2 25.8 mmol/l
[2024-11-11 19:06] LABS: o2 60 %; puncture site BRACHIAL LEFT
[2024-11-11 19:07] LABS: mode TX DE AEROSOL
[2024-11-11 19:09] VITALS: O2SAT 93
[2024-11-11 19:41] VITALS: BP 119/59; O2SAT 95
[2024-11-11 20:06] LABS: URINE PROTEIN 100 (NEGATIVE); URINE WBC > 5548.3 uL (0.0-23.2)
[2024-11-11] MEDS ORDERED: HEPARIN SODIUM,PORCINE 5,000 UNITS/ML VIAL ONE (20:47)
[2024-11-11] MEDS ORDERED: INSULIN NPH HUM/REG INSULIN HM 1,000 UNIT/10 ML UNITS SUBCUTANEO SCH (21:00)
[2024-11-11] MEDS ORDERED: ENOXAPARIN SODIUM 30 MG/0.3 ML SYRINGE SUBCUTANEO SCH (21:19)
[2024-11-11] MEDS ORDERED: NITROGLYCERIN 250 ML IV SCH (21:30)
[2024-11-11] MEDS ORDERED: NITROGLYCERIN IN 5 % DEXTROSE 50 MG/250 ML BOTTLE IV ONE (22:46)
[2024-11-12] MEDS ORDERED: ALBUTEROL SULFATE 3 ML/2.5 MG AMPUL.NEB IH SCH
[2024-11-12 01:57] VITALS: BP 125/51; O2SAT 93
[2024-11-12] MEDS ORDERED: hydrALAZINE HCL 25 MG TABLET PO SCH (09:00)
[2024-11-12] MEDS ORDERED: FAMOtidine 20 MG TABLET PO SCH (09:00)
[2024-11-12] MEDS ORDERED: ISOSORBIDE MONONITRATE 60 MG TABLET PO SCH (09:00)
[2024-11-12] MEDS ORDERED: APIXABAN 2.5 MG TABLET PO SCH (09:00)
[2024-11-12] MEDS ORDERED: IRBESARTAN 150 MG TABLET PO SCH (09:00)
[2024-11-12] MEDS ORDERED: METOPROLOL SUCCINATE 25 MG TAB.SR.24H PO SCH (09:00)
[2024-11-12 09:10] VITALS: BP 125/53; O2SAT 94
[2024-11-12 10:10] VITALS: BP 146/58
[2024-11-12] MEDS ORDERED: IRBESARTAN 150 MG TABLET PO NR (11:35)
[2024-11-12] MEDS ORDERED: CEFTRIAXONE SODIUM 1,000 MG VIAL IV NR (13:30)
[2024-11-12 15:00] VITALS: BP 125/52; O2SAT 97
[2024-11-12 16:42] VITALS: O2SAT 956
[2024-11-12 19:31] VITALS: O2SAT 95
[2024-11-12] MEDS ORDERED: FUROsemide 40 MG/4 ML VIAL ONE (20:39)
[2024-11-12] MEDS ORDERED: CARVEDILOL 12.5 MG TABLET PO SCH (21:00)
[2024-11-12] MEDS ORDERED: MORPHINE SULFATE 4 MG/ML CARTRIDGE IV ONE (21:15)
[2024-11-12 21:31] LABS: ABG PH 7.228 (7.35-7.45); ABG PO2 74.1 mmHg (80-100); ABG pCO2 45.2 mmHg (35-45); BICARBONATE 18.4 mmol/l (23-25); SaO2 90.5 %; Tco2 19.8 mmol/l
[2024-11-12] MEDS ORDERED: ALBUTEROL SULFATE 3 ML/2.5 MG AMPUL.NEB IH ONE (21:34)
[2024-11-12] MEDS ORDERED: LEVALBUTEROL HCL 1.25 MG/3 ML SOLUTION IH STA (21:36)
[2024-11-12 21:51] LABS: ALBUMIN 2.8 gm/dL (3.4-5.0); BILIRUBIN TOTAL 0.37 mg/dL (0.3-1.2); CALCIUM 8.3 mg/dL (8.5-10.1); CREATININE SERUM 3.8 mg/dL (0.55-1.02); GFR 11.21; POTASSIUM 3.99 mEq/L (3.5-5.1); TOTAL PROTEIN 7.8 gm/dL (6.4-8.2)
[2024-11-12 23:42] LABS: allen test SATISFACTORY; mode NON REBREATHING MASK; o2 100 %; puncture site RADIAL LEFT
[2024-11-12] MEDS ORDERED: LORazepam 2 MG/ML VIAL IV ONE (23:45)
[2024-11-13] VITALS (7 sets, daily range): BP systolic 103–122; BP diastolic 42–50; O2SAT 93–100
[2024-11-13] MEDS ORDERED: LORazepam 2 MG/ML VIAL ONE (00:13)
[2024-11-13 00:48] LABS: ABG PH 7.366 (7.35-7.45); ABG PO2 141.3 mmHg (80-100); ABG pCO2 39.7 mmHg (35-45); BASE EXCESS -2.8 mmol/l; BICARBONATE 22.2 mmol/l (23-25); Tco2 23.4 mmol/l
[2024-11-13] MEDS ORDERED: ALBUTEROL SULFATE 3 ML/2.5 MG AMPUL.NEB IH SCH (01:00)
[2024-11-13] MEDS ORDERED: LEVOTHYROXINE SODIUM 100 MCG TABLET PO SCH (06:00)
[2024-11-13 06:12] LABS: o2 100 %
[2024-11-13 06:13] LABS: allen test SATISFACTORY; mode BPAP; puncture site RADIAL RIGHT
[2024-11-13] MEDS ORDERED: NITROGLYCERIN IN 5 % DEXTROSE 250 ML IV SCH (08:15)
[2024-11-13] MEDS ORDERED: INSULIN NPH HUM/REG INSULIN HM 1,000 UNIT/10 ML UNITS SUBCUTANEO SCH (09:00)
[2024-11-13] MEDS ORDERED: APIXABAN 2.5 MG TABLET PO SCH (09:00)
[2024-11-13 10:36] LABS: ABG PH 7.397 (7.35-7.45); ABG PO2 133.9 mmHg (80-100); ABG pCO2 36.6 mmHg (35-45); BASE EXCESS -2.3 mmol/l; Tco2 23.1 mmol/l; allen test SATISFACTORY; mode BPAP; puncture site RADIAL LEFT
[2024-11-13 10:37] LABS: o2 80 %
[2024-11-13] MEDS ORDERED: HEPARIN SODIUM,PORCINE 5,000 UNITS/ML VIAL ONE (15:58)
[2024-11-13] MEDS ORDERED: INSULIN GLARGINE,HUM.REC.ANLOG 1,000 UNITS/10 ML UNITS SUBCUTANEO SCH (17:00)
[2024-11-13] MEDS ORDERED: LACTOBACILLUS ACIDOPHILUS 1 CAP CAP PO SCH (17:50)
[2024-11-13] MEDS ORDERED: CEFTRIAXONE SODIUM 1,000 MG VIAL IV SCH (19:00)
[2024-11-14] VITALS (8 sets, daily range): BP systolic 110–121; BP diastolic 44–58; O2SAT 97–100
[2024-11-14 06:34] LABS: CALCIUM 8.5 mg/dL (8.5-10.1); CREATININE SERUM 3.61 mg/dL (0.55-1.02); GFR 11.89; POTASSIUM 4.12 mEq/L (3.5-5.1)
[2024-11-14] MEDS ORDERED: TEMAZEPAM 15 MG CAPSULE PO PRN (21:30)
[2024-11-15] VITALS (10 sets, daily range): BP systolic 90–134; BP diastolic 46–67; O2SAT 90–99
[2024-11-15] MEDS ORDERED: FUROsemide 40 MG/4 ML VIAL ONE (06:14)
[2024-11-15] MEDS ORDERED: FUROsemide 40 MG/4 ML VIAL IV STA (06:17)
[2024-11-15] MEDS ORDERED: MORPHINE SULFATE 4 MG/ML CARTRIDGE IV STA (06:17)
[2024-11-15 06:55] LABS: BASO % 0.2 % (0.1-1.2); EOS # 0.23 (0.04-0.54); EOS % 1.7 % (0.7-7.0); HEMATOCRIT 31.7 % (34.1-44.9); HEMOGLOBIN 10.5 g/dL (11.2-15.7); LYMPH # 3.09 (1.18-3.74); LYMPH % 22.5 % (19.3-53.1); MEAN CORPUSCULAR HEMOGLOBIN 30.2 pg (25.6-32.2); MONO # 1.21 (0.24-0.82); MONO % 8.8 % (4.7-12.5); NEUT # 9.07 (1.56-6.13); PLATELET COUNT 272 K/uL (163-369); RED BLOOD COUNT 3.48 M/uL (3.93-5.22); RED CELL DISTRIBUTION WIDTH 13.2 % (11.6-14.4)
[2024-11-15 07:27] LABS: ABG PH 7.351 (7.35-7.45); ABG PO2 66.4 mmHg (80-100); ABG pCO2 32.8 mmHg (35-45); BASE EXCESS -6.7 mmol/l; BICARBONATE 17.7 mmol/l (23-25); SaO2 91.3 %; Tco2 18.8 mmol/l
[2024-11-15 07:44] LABS: allen test SATISFACTORY; mode NASAL CANNULA; o2 36 %; puncture site RADIAL LEFT
[2024-11-15] MEDS ORDERED: LOSARTAN POTASSIUM 25 MG TABLET PO SCH (09:00)
[2024-11-15] MEDS ORDERED: CEFTRIAXONE SODIUM 1,000 MG VIAL IV SCH (09:00)
[2024-11-15] MEDS ORDERED: METOPROLOL SUCCINATE 25 MG TAB.SR.24H PO SCH (09:00)
[2024-11-15] MEDS ORDERED: FLUCONAZOLE 100 MG TABLET PO SCH (09:00)
[2024-11-15] MEDS ORDERED: FUROsemide 20 MG TABLET PO SCH (09:00)
[2024-11-15 12:47] LABS: ALBUMIN 2.6 gm/dL (3.4-5.0); BILIRUBIN TOTAL 0.32 mg/dL (0.3-1.2); CALCIUM 8.4 mg/dL (8.5-10.1); GFR 8.04; GLOBULINA 4.4 G/DL (2.4-3.5); POTASSIUM 4.66 mEq/L (3.5-5.1)
[2024-11-15 12:53] LABS: CREATININE SERUM 5.07 mg/dL (0.55-1.02)
[2024-11-15] MEDS ORDERED: NOREPINEPHRINE BITARTRATE 1 MG/ML AMPUL IV ONE (13:04)
[2024-11-15] MEDS ORDERED: NOREPINEPHRINE BITARTRATE 4 MG in DEXTROSE 5 % IN WATER 250 ML IV SCH (13:15)
[2024-11-15] MEDS ORDERED: HEPARIN SODIUM,PORCINE 5,000 UNITS/ML VIAL IV PRN (14:30)
[2024-11-15] MEDS ORDERED: BUMETANIDE 1 MG TABLET PO SCH (17:00)
[2024-11-15] MEDS ORDERED: DOCUSATE SODIUM 100MG CAP PO SCH (21:00)
[2024-11-16 00:47] VITALS: O2SAT 96
[2024-11-16 02:23] VITALS: BP 141/70; O2SAT 99
[2024-11-16 05:58] VITALS: O2SAT 97
[2024-11-16 09:10] VITALS: BP 131/63; O2SAT 97
[2024-11-16 09:17] VITALS: O2SAT 91
[2024-11-16 12:37] VITALS: O2SAT 99
[2024-11-16] MEDS ORDERED: ISOSORBIDE MONONITRATE 60 MG TABLET PO NR (13:00)
[2024-11-16] MEDS ORDERED: FUROsemide 40 MG/4 ML VIAL ONE (14:29)
[2024-11-16] MEDS ORDERED: FUROsemide 40 MG/4 ML VIAL IV STA (14:32)
[2024-11-16] MEDS ORDERED: MORPHINE SULFATE 4 MG/ML CARTRIDGE IV STA (14:33)
[2024-11-17] MEDS ORDERED: ISOSORBIDE MONONITRATE 60 MG TABLET PO SCH (09:00)
== END 2024-11-16 19:27 | disposition expired ==
LOC: ER 12:16 → MEDI 18:41
PROVIDERS: Emergency Medicine; ADMIT Internal Medicine Cardiovascular Disease; ATTEND Internal Medicine Cardiovascular Disease
PROC: 4A12X4Z Monitoring of Cardiac Electrical Activity, External Approach (ICD-10-PCS; principal; 2024-11-11)
PROC: B24BZZZ Ultrasonography of Heart with Aorta (ICD-10-PCS; 2024-11-11)
PROC: 5A1D70Z Performance of Urinary Filtration, Intermittent, Less than 6 Hours Per Day (ICD-10-PCS; 2024-11-11)
PROC: 5A1D70Z Performance of Urinary Filtration, Intermittent, Less than 6 Hours Per Day (ICD-10-PCS; 2024-11-13)
PROC: 5A1D70Z Performance of Urinary Filtration, Intermittent, Less than 6 Hours Per Day (ICD-10-PCS; 2024-11-15)
DX: I13.2 Hypertensive heart and chronic kidney disease with heart failure and with stage 5 chronic kidney disease, or end stage renal disease (principal); J80 Acute respiratory distress syndrome; I21.4 Non-ST elevation (NSTEMI) myocardial infarction; N18.6 End stage renal disease; N39.0 Urinary tract infection, site not specified; E11.22 Type 2 diabetes mellitus with diabetic chronic kidney disease; Z99.2 Dependence on renal dialysis; Z79.4 Long term (current) use of insulin; I95.89 Other hypotension; I25.10 Atherosclerotic heart disease of native coronary artery without angina pectoris; E03.9 Hypothyroidism, unspecified; I50.9 Heart failure, unspecified; E78.5 Hyperlipidemia, unspecified